=== PATIENT | female | born 1940 | race Caucasian/White ===

== ENCOUNTER → 2017-08-10 | Outpatient (CLI) | payer OTHER ==
[~2017-08-10] MED LIST: ASPIRIN ADULT L81 M1 PO; CELEXA20 MG PO; CENTRUM SILVER1 TA1 PO; COZAAR50 MG PO; FISH OIL 10001000 MG PO; FLAGYL500 MG PO; NORVASC2.5 MG PO; Oscal,Oyster S500 MG PO; SIMVASTATIN5 MG PO; VITAMIN C1 TAB PO
== END | disposition home or self-care (01) ==
LOC: MAMMO 13:40
DX: Z12.31 Encounter for screening mammogram for malignant neoplasm of breast (principal)

== ENCOUNTER → 2017-08-31 | Outpatient (CLI) | payer OTHER | END | disposition home or self-care (01) | LOC: MAMMO 12:57 | DX: N63.10 Unspecified lump in the right breast, unspecified quadrant (principal) ==

== ENCOUNTER 2017-09-19 11:46 | Emergency (ER) | payer MEDICARE, OTHER ==
[~2017-09-19] VITALS: Ht 165.1 cm; Wt 90.7 kg
[2017-09-19 13:45] LABS: BASO % 0.4 % (0.0-1.0); EOS # 0.1 10*3/uL (0.0-0.4); EOS % 1.5 % (1.0-4.0); HEMATOCRIT 38.1 % (37.0-47.0); LYMPH # 1.6 10*3/uL (1.3-4.4); LYMPH % 19.8 % (27.0-41.0); MEAN CELL VOLUME 87.8 fl (81.0-99.0); MEAN CORPUSCULAR HGB 27.6 pg (27.0-31.0); MEAN CORPUSCULAR HGB CONC 31.5 g/dl (33.0-37.0); MEAN PLATELET VOLUME 10.2 fl (9.6-12.3); MONO # 0.7 10*3/uL (0.1-1.0); MONO % 8.6 % (3.0-9.0); NEUT # 5.4 10*3/uL (2.3-7.9); NEUT % 67.5 % (47.0-73.0); PLATELET COUNT AUTOMATED 214 10*3/uL (130-400); RED BLOOD COUNT 4.34 10*6/uL (4.10-5.10); RED CELL DISTRI WIDTH 12.7 % (0-14.5)
[2017-09-19 14:02] LABS: BUN 19 mg/dl (7-24); CHLORIDE 106 mmol/L (98-107); CREATININE 0.77 mg/dL (0.55-1.02); POTASSIUM 3.7 mmol/L (3.5-5.1); SODIUM 143 mmol/L (136-145)
[2017-09-19 14:08] LABS: TROPONIN I < 0.015 ng/ml (<0.045)
[2017-09-19 19:22] VITALS: BP 136/68
== END 2017-09-19 20:39 | disposition short-term general hospital (02) ==
LOC: ED 11:46
PROVIDERS: Emergency Medicine
DX: I63.9 Cerebral infarction, unspecified (principal); R53.1 Weakness; Z90.710 Acquired absence of both cervix and uterus; Z90.49 Acquired absence of other specified parts of digestive tract; Z98.890 Other specified postprocedural states; Z79.899 Other long term (current) drug therapy; Z79.82 Long term (current) use of aspirin; Z88.8 Allergy status to other drugs, medicaments and biological substances

== ENCOUNTER → 2018-07-26 | Outpatient (CLI) | payer OTHER, MEDICARE | END | disposition home or self-care (01) | LOC: MAMMO 07-13 13:30 | DX: N63.11 Unspecified lump in the right breast, upper outer quadrant (principal) ==

== ENCOUNTER 2018-09-23 19:08 | Emergency (ER) | payer MEDICARE, OTHER ==
[~2018-09-23] VITALS: Ht 165.1 cm; Wt 90.7 kg
--- NOTE | ~2018-09-23 | EKG ---
[place], [place] ELECTROCARDIOGRAM REPORT NAME: YARED LEE UNIT #: [id number] ROOM: DOCTOR: EPIPHANY DRAFT REPORT BIRTHDATE: [birth year] [facility] Test Date: 2018-09-23 Test Time: 20:32:31 Pat Name: YARED LEE Department: ER Room: Gender: F Scientific Laboratory Supervisor: EKG.SC : 1940 Requested By: KEANU BANDA PA-C Order Number: [id number] Reading MD: Carol Cline MD Measurements Intervals [place] Rate: 71 P: 47 DC: 113 QRS: 53 QRSD: 88 T: 25 QT: 418 QTc: 455 Interpretive Statements Sinus rhythm Borderline short DC interval Borderline ST depression, inferior leads Electronically Signed On 09-27-2018 15:06:26 PDT by Carol Cline MD CM:EKGRPT:ELECTROCARDIOGRAM REPORT [id number] KEANU BANDA PA-C EPIPHANY DRAFT REPORT KEANU BANDA PA-C
[2018-09-23 19:12] VITALS: BP 144/63
[2018-09-23] MEDS ORDERED: NORCO 5-325 TA1 EACH PO (20:25)
[2018-09-23 20:52] LABS: BASO % 0.3 % (0.0-1.0); EOS # 0.1 10*3/uL (0.0-0.4); EOS % 1.1 % (1.0-4.0); HEMATOCRIT 41.4 % (37.0-47.0); HEMOGLOBIN 12.8 g/dl (12.0-16.0); LYMPH # 1.2 10*3/uL (1.3-4.4); LYMPH % 13.2 % (27.0-41.0); MEAN CELL VOLUME 86.4 fl (81.0-99.0); MEAN CORPUSCULAR HGB 26.7 pg (27.0-31.0); MEAN CORPUSCULAR HGB CONC 30.9 g/dl (33.0-37.0); MEAN PLATELET VOLUME 10.1 fl (9.6-12.3); MONO # 0.8 10*3/uL (0.1-1.0); MONO % 8.9 % (3.0-9.0); NEUT # 7.1 10*3/uL (2.3-7.9); PLATELET COUNT AUTOMATED 273 10*3/uL (130-400); RED BLOOD COUNT 4.79 10*6/uL (4.10-5.10); RED CELL DISTRI WIDTH 13.8 % (0-14.5); WHITE BLOOD COUNT 9.3 10*3/uL (4.8-10.8)
[2018-09-23 21:02] LABS: ACT PARTIAL THROMBO TIME 21.2 SECONDS (20.8-31.5); INTERNATIONAL NORM RATIO 0.9 (2.0-3.5)
[2018-09-23 21:21] LABS: TROPONIN I < 0.015 ng/ml (<0.045)
[2018-09-23 21:24] LABS: BUN 26 mg/dl (7-24)
[2018-09-23 21:25] LABS: CHLORIDE 110 mmol/L (98-107); CREATININE 0.66 mg/dL (0.55-1.02); POTASSIUM 3.7 mmol/L (3.5-5.1); SGOT/AST 10 IU/L (3-35); SGPT/ALT 16 U/L (12-78); SODIUM 143 mmol/L (136-145); TOTAL PROTEIN 6.5 gm/dL (6.4-8.2)
[2018-09-23 21:26] LABS: ALKALINE PHOSPHATASE 81 U/L (45-117)
[2018-09-23 22:17] LABS: BILIRUBIN NEGATIVE (NEGATIVE); BLOOD NEGATIVE (NEGATIVE); CLARITY CLEAR (CLEAR); GLUCOSE NEGATIVE (NEGATIVE); KETONE NEGATIVE (NEGATIVE); LEUKO ESTERASE 1+ (NEGATIVE); NITRITE NEGATIVE (NEGATIVE); PH 5.5 (5.0-9.0); SPECIFIC GRAVITY 1.025 (1.005-1.030)
[2018-09-23 22:18] LABS: COLOR YELLOW (YELLOW)
[2018-09-23 22:25] LABS: BACTERIA 2+; MUCOUS 1+
== END 2018-09-24 01:13 | disposition home or self-care (01) ==
LOC: ED 19:08
PROVIDERS: Physician Assistant
DX: M54.5 Low back pain (principal); R42 Dizziness and giddiness; R55 Syncope and collapse; R53.1 Weakness; M54.2 Cervicalgia; Z79.899 Other long term (current) drug therapy; Z79.82 Long term (current) use of aspirin; Z86.73 Personal history of transient ischemic attack (TIA), and cerebral infarction without residual deficits; W18.30XA Fall on same level, unspecified, initial encounter; Y93.89 Activity, other specified; Y92.89 Other specified places as the place of occurrence of the external cause; Y99.8 Other external cause status

== ENCOUNTER 2019-04-14 13:12 | Inpatient (IN) | payer MEDICARE, OTHER ==
[~2019-04-14] VITALS: Ht 165.1 cm; Wt 84.8 kg
--- NOTE | ~2019-04-14 | EKG ---
[place], [place] ELECTROCARDIOGRAM REPORT NAME: YARED LEE UNIT #: [id number] ROOM: 506 DOCTOR: SAURABH DRAFT REPORT BIRTHDATE: [birth year] [facility] Test Date: 2019-04-14 Test Time: 13:35:07 Pat Name: YARED LEE Department: Room: 506 Gender: F Automotive Hardware Engineer: Viktoria Gomez : 1940 Requested By: STEF HOOKER Order Number: [id number] Reading MD: Kami Hernandez MD Measurements Intervals [place] Rate: 96 P: 71 MN: 112 QRS: 78 QRSD: 84 T: 68 QT: 336 QTc: 425 Interpretive Statements Sinus rhythm Borderline short MN interval Abnormal R-wave progression, early transition Compared to ECG 09/23/2018 20:32:31 ST (T wave) deviation no longer present Electronically Signed On 04-16-2019 13:10:45 PDT by Kami Hernandez MD CM:EKGRPT:ELECTROCARDIOGRAM REPORT [id number] STEF HOBSON DRAFT REPORT STEF HOOKER DO
--- NOTE | ~2019-04-14 | CON ---
[place], [place] REPORT OF CONSULTATION [id number] UNIT #: [id number] ROOM: 506 DOCTOR: HARLAN CHAVEZ MDRAOUL BIRTHDATE: [birth year] DOS: 04/17/2019 PULMONARY CONSULTATION EVALUATION AND MANAGEMENT CONSULTATION REQUESTED BY: Dr. Kingston Lowery. REASON FOR CONSULTATION: For assessment of chronic obstructive pulmonary disease and acute pneumonia. HISTORY OF PRESENT ILLNESS: This is an 78-year-old white female patient who was admitted to the hospital under care of her primary care physician, Dr. Mariana Lowery on 04/14/2019. The patient came into the hospital Emergency Room as she has been reporting having symptoms of increased shortness of breath occurring at home. The patient was also complaining of general weakness and fatigue as well. She has been previously treated for urinary tract infection by the primary care physician with the antibiotics. The patient also reported palpitation as well. She denies any symptoms of wheezing. Denies symptoms of chest pain or any acute hemoptysis. She has been admitted to the hospital for further care for the congestive heart failure and other reasons. The patient stating this morning, she is feeling tired and fatigued. She could not sleep during this hospitalization as she has to be awake multiple times at night, sometime in the daytime as well. "I could not sleep well." The respiratory symptom and acute illness at the time came into the hospital as per patient was improved 100%. REVIEW OF SYSTEMS: CONSTITUTIONAL: Fatigue and tiredness still reported without any symptoms of fever or chills. EYES: Denies any burning, redness, or tenderness. EARS, NOSE, THROAT SYMPTOMS: She denies symptoms of postnasal drainage or epistaxis. The patient was noted with history of chronic hearing loss. The patient using hearing aids for that. CARDIOVASCULAR: Denies angina pain, edema or pain of the lower extremities. GASTROINTESTINAL: Denies dysphagia, nausea, vomiting, diarrhea, abdominal pain, hematemesis, melena, or hematochezia. SKIN: Denies abnormal lesions or rashes. CENTRAL NERVOUS SYSTEM: Denies any dizziness, headache, diplopia or syncopal episodes. Remaining systems were reviewed with the patient, they were noted all negative. PAST MEDICAL HISTORY: The patient was known with; 1. History of essential hypertension. 2. General anxiety disorder. 3. Coronary artery disease. 4. Hypercholesterolemia. 5. General anxiety disorder and depression. SOCIAL HISTORY: Stated by the patient she lives at home by herself. She has 3 children. Denies any history of alcohol use or illicit drug. She was noted tobacco use in the past that was discontinued several years ago, could not give [place], [place] REPORT OF CONSULTATION NAME: YARED LEE UNIT #: [id number] ROOM: 506 DOCTOR: RAOUL THOMAS MD BIRTHDATE: [birth year] me the precise history. FAMILY HISTORY: Noncontributory. HOME MEDICATIONS: Listed as amlodipine, calcium carbonate, citalopram, Plavix, gabapentin, Avapro, multivitamin, Ditropan, simvastatin and trazodone. CURRENT MEDICATIONS: Administered on this hospitalization were noted as Plavix, Solu-Medrol 80 mg b.i.d., DuoNeb q. 4 hours, Lovenox, citalopram, aspirin, trazodone, Rocephin, Zithromax, and some other p.r.n. meds. DRUG ALLERGIES: Noted allergies: 1. SULFA DRUGS. 2. POVIDONE IODINE. PHYSICAL EXAMINATION: GENERAL: This is an 78-year-old female patient currently sitting on side of the bed without any acute distress with mild hearing loss, but able to understand the question and answer them appropriately. Height of 5 feet 5 inches, weight of 187 pounds, BMI 31 recorded on admission by the nursing staff. VITAL SIGNS: For the patient, reviewed, normal temperature since admission, respiratory rate between 18-22, heart rate ranging between 82-94, blood pressure 129/65 at midnight with previous blood pressure 120/73 recorded. Intake 1080 mL and output 700 mL. Pulse oxygen saturation on room air at rest was 94% saturation. HEENT: Examination shows head was atraumatic. Eyes nonicterus. NECK: Supple. CARDIOVASCULAR: S1, S2 audible. LUNGS: Noted without any wheezing or crackles were noted scattered in both lungs bilaterally, greater on the right than the left side. ABDOMEN: Soft, nontender. Bowel sounds present. EXTREMITIES: Does not show any acute edema, clubbing or cyanosis this morning of assessment. CENTRAL NERVOUS SYSTEM: Noted intact. MUSCULOSKELETAL: Noted without any acute deformities. LABORATORY DATA: CMP on 04/14/2019 that was done, BUN 27, creatinine was normal. Remaining electrolytes grossly normal. ProBNP was noted elevated at 1749. CBC that was done on 04/14/2019, WBC count 14.2, hemoglobin 10.1, platelet count was normal. CMP that was done 04/15/2019, normal BUN and creatinine and other electrolytes. BMP that was done yesterday with normal BUN and creatinine. Glucose 153. D-dimer noted elevated 1.92 on 04/15/2019. The patient has a V/Q scan that was completed on 04/16/2019 was noted low probability of pulmonary embolism. The images could not be reviewed. The chest x-ray was done, 1 view on admission on 04/14/2019, again none of the images could be reviewed. Radiology was noted there were no acute abnormalities. The patient has a CT scan of the chest that was completed without contrast on 04/15/2019 reported with finding of trace bilateral pleural fluid. Left lower lobe was described as area of atelectasis, which could be round atelectasis consolidation. Comparison with the previous other CT scan of the chest [place], [place] REPORT OF CONSULTATION NAME: YARED LEE UNIT #: [id number] ROOM: 506 DOCTOR: HARLAN CHAVEZ MD,[facility] BIRTHDATE: [birth year] available to be done. IMPRESSION: 1. The patient who has been currently admitted to the hospital was noted with finding highly suggestive of acute congestive heart failure is the most likely cause of current assessment as well, possibly acute exacerbation of chronic obstructive pulmonary disease. 2. Small pleural fluid related to congestive heart failure would be considered likely. 3. Area of round atelectasis, mass lesion cannot be completely excluded. Symptomatically, the patient has shown significant improvement in the symptoms including respiratory symptoms and debility, stating that she has been considered for [facility] to [facility] for [facility] care. PLAN OF MANAGEMENT: At this time, dose of Solu-Medrol will be decreased to 40 mg daily because of lack of wheezing. Cardiology assessment if not done should be done including consideration for echocardiogram. The abnormality in the right lower lobe at this time significance unclear. Outpatient workup to be done for further followup, if necessary obtain the PET scan to exclude any malignant process. Other therapy, plan of management, additional treatment changes will be made based on progression of the illness. Usual care. Supportive plan of management, other care plan for treatment and therapies. Usual medical care. Thanks for allowing me to participate in the care of this patient. RAOUL CLAROS MD CM:CONSTR:REPORT OF CONSULTATION 1012 04/17/19 1411 interface
--- NOTE | ~2019-04-14 | PR ---
[place], [place] PROGRESS NOTE NAME: YARED LEE UNIT #: [id number] ROOM: 506 DOCTOR: RAOUL THOMAS MD BIRTHDATE: [birth year] DOS: 04/18/2019 SUBJECTIVE: She has been noted comfortable at this time, resting in the bed, reporting reduction in symptoms of shortness of breath, [id number] nonproductive cough stated today. There were no symptoms of chest pain, fever or chills. Denies symptoms of hemoptysis. Denies symptoms of nausea, vomiting, diarrhea or any abdominal pain. OBJECTIVE: GENERAL: The patient was noted she was comfortably resting in the bed this morning of assessment. VITAL SIGNS: Normal temperature, respiratory rate 18, heart rate 78, blood pressure 150/80 recorded at midnight. The pulse oxygen saturation recorded on room air at rest 94% saturation. HEENT: Examination shows head was atraumatic. Eyes nonicterus. NECK: Supple. CARDIOVASCULAR: S1, S2 audible. LUNGS: Noted without any wheezing or crackles at the present time. ABDOMEN: Soft, nontender. Bowel sounds present. EXTREMITIES: No new change. IMPRESSION: 1. Stable respiratory status from the pulmonary standpoint at this time with resolving congestive heart failure. 2. Acute exacerbation of chronic obstructive pulmonary disease. 3. Small pleural fluid. 4. Round atelectasis, mass cannot be excluded as well on the CT scan of the chest in the left lower lobe. PLAN OF MANAGEMENT: No change in pulmonary standpoint. The patient could be discharged to nursing facility. Outpatient assessment to be done for the current nodule/mass lesion with a PET scan to exclude any malignant process. Usual care. [place], [place] PROGRESS NOTE NAME: YARED LEE UNIT #: [id number] ROOM: 506 DOCTOR: RAOUL THOMAS MD BIRTHDATE: [birth year] RAOUL CLAROS MD CM:PNTRANS [id number] RAOUL CHAVEZ MD 04/18/19 1413 interface
[~2019-04-14 13:12] MED LIST changes: +NORCO 5-325 TA1 EACH PO
[2019-04-14 13:16] VITALS: BP 106/51
[2019-04-14 13:55] LABS: HEMATOCRIT 34.2 % (37.0-47.0); HEMOGLOBIN 10.1 g/dl (12.0-16.0); MEAN CELL VOLUME 81.6 fl (81.0-99.0); MEAN CORPUSCULAR HGB 24.1 pg (27.0-31.0); MEAN CORPUSCULAR HGB CONC 29.5 g/dl (33.0-37.0); PLATELET COUNT AUTOMATED 274 10*3/uL (130-400); RED BLOOD COUNT 4.19 10*6/uL (4.10-5.10); RED CELL DISTRI WIDTH 15.5 % (0-14.5); WHITE BLOOD COUNT 14.2 10*3/uL (4.8-10.8)
--- NOTE | 2019-04-14 14:06 | NUR ---
PT POSITIONED FOR COMFORT WITH FAMILY @ BEDSIDE,SAFETY PRECAUTIONS INTACT AND CALL LIGHT WITHIN REACH.
--- NOTE | 2019-04-14 14:08 | NUR ---
PT UNABLE TO HELP COMPLETE A MEDICATION REC AN UNABLE TO FIND HER MEDICATION LIST @ THIS TIME.
[2019-04-14 14:13] LABS: TOTAL CELLS COUNTED 100 #CELLS
[2019-04-14 14:14] LABS: ACT PARTIAL THROMBO TIME 27.6 SECONDS (20.0-32.1); ALBUMIN 2.2 gm/dl (3.1-4.5); ALKALINE PHOSPHATASE 67 U/L (45-117); BUN 27 mg/dl (7-24); CHLORIDE 111 mmol/L (98-107); CREATININE 0.84 mg/dL (0.55-1.02); LIPASE 71 U/L (73-393); SGOT/AST 20 IU/L (3-35); SGPT/ALT 21 U/L (12-78); SODIUM 141 mmol/L (136-145); TOTAL PROTEIN 5.4 gm/dL (6.4-8.2)
[2019-04-14 14:14] LABS: PLATELET SUFFICIENCY NORMAL (NORMAL)
[2019-04-14 14:15] LABS: TROPONIN I < 0.015 ng/ml (<0.045)
[2019-04-14 15:32] LABS: BILIRUBIN NEGATIVE (NEGATIVE); BLOOD NEGATIVE (NEGATIVE); CLARITY SL CLOUDY (CLEAR); COLOR YELLOW (YELLOW); GLUCOSE NEGATIVE (NEGATIVE); KETONE NEGATIVE (NEGATIVE); LEUKO ESTERASE 1+ (NEGATIVE); NITRITE NEGATIVE (NEGATIVE); SPECIFIC GRAVITY 1.015 (1.005-1.030)
[2019-04-14 15:37] LABS: BACTERIA 3+; MUCOUS 3+; WBC 21-30 wbc/hpf (0-5)
[2019-04-14 16:22] VITALS: BP 102/58
[2019-04-14 17:15] VITALS: BP 110/54
--- NOTE | 2019-04-14 17:15 | NUR ---
A 78, admitted to , under the services of KELLEN Iglesias MD with a diagnosis of UTI, DEHYDRATION. Chief complaint is WEAKNESS. Patient arrived via bed from ER. Monitor applied. Initial assessment completed. Vital signs taken and recorded. KELLEN IGLESIAS MD notified of admission to the unit. Orders received. See assessment for past medical history, medications and allergies. Patient and/or family oriented to unit. [facility] visitation policy reviewed. Clothing/patient valuable form completed. CHANG LOPEZ
--- NOTE | 2019-04-14 17:45 | NUR ---
DR. THOMAS NOTIFIED OF COMPLETE MED REC.
[2019-04-14] MEDS ORDERED: NEURONTIN300 MG PO (18:11)
[2019-04-14] MEDS ORDERED: AVAPRO150 M1 PO (18:12)
[2019-04-14] MEDS ORDERED: DITROPAN XL5 MG PO (18:12)
[2019-04-14] MEDS ORDERED: PLAVIX75 M1 PO (18:12)
[2019-04-14] MEDS ORDERED: TRAZODONE50 MG PO (18:13)
[2019-04-14 20:00] VITALS: BP 120/54
[2019-04-15] VITALS: BP 118/53
--- NOTE | 2019-04-15 00:30 | NUR ---
PATIENT RESTING IN BED WITH EYES OPEN. ASSISTED PATIENT TO BEDSIDE COMMODE. PATIENT BECOMES SHORT OF BREATH WITH EXERTION. O2 APPLIED AT 3L N/C. PATIENT STATED SHE USES OXYGEN AT NIGHT TIME. IV FLUIDS INFUSING AT 100CC/HR AT THIS TIME. DENIES COMPLAINTS OF PAIN OR DISCOMFORT AT THIS TIME. WILL CONTINUE TO MONITOR. CALL LIGHT IN REACH.
[2019-04-15 06:21] LABS: BASO % 0.2 % (0.0-1.0); EOS # 0.4 10*3/uL (0.0-0.4); EOS % 5.4 % (1.0-4.0); HEMATOCRIT 30.7 % (37.0-47.0); HEMOGLOBIN 8.9 g/dl (12.0-16.0); LYMPH # 1.1 10*3/uL (1.3-4.4); LYMPH % 13.6 % (27.0-41.0); MEAN CELL VOLUME 81.2 fl (81.0-99.0); MEAN CORPUSCULAR HGB 23.5 pg (27.0-31.0); MEAN PLATELET VOLUME 10.7 fl (9.6-12.3); MONO # 0.5 10*3/uL (0.1-1.0); NEUT # 6.1 10*3/uL (2.3-7.9); NEUT % 74.6 % (47.0-73.0); PLATELET COUNT AUTOMATED 255 10*3/uL (130-400); RED BLOOD COUNT 3.78 10*6/uL (4.10-5.10); RED CELL DISTRI WIDTH 15.3 % (0-14.5); WHITE BLOOD COUNT 8.2 10*3/uL (4.8-10.8)
[2019-04-15 06:27] LABS: ALBUMIN 1.9 gm/dl (3.1-4.5); ALKALINE PHOSPHATASE 57 U/L (45-117); BUN 23 mg/dl (7-24); CHLORIDE 113 mmol/L (98-107); CREATININE 0.68 mg/dL (0.55-1.02); IRON 15 ug/dL (50-170); POTASSIUM 4.1 mmol/L (3.5-5.1); SGOT/AST 10 IU/L (3-35); SGPT/ALT 18 U/L (12-78); SODIUM 143 mmol/L (136-145); TOTAL IRON BINDING CAPACITY 216 ug/dl (250-450); TOTAL PROTEIN 4.8 gm/dL (6.4-8.2)
--- NOTE | 2019-04-15 07:35 | NUR ---
24 HOUR CHART CHECK COMPLETED
[2019-04-15 07:50] LABS: FERRITIN 34.1 ng/mL (10.0-291.0); VITAMIN D, 25-HYDROXY 33.9 ng/mL (30-100)
--- NOTE | 2019-04-15 08:15 | NUR ---
PATIENT ASSESSMENT COMPLETED AT THIS TIME WITHOUT INCIDENT. DENIES ANY PAIN, CHEST PAIN OR SHORTNESS OF BREATH AT THIS TIME. MEDICATIONS GIVEN WITHOUT INCIDENT. PATIENT EATING BREAKFAST AT THIS TIME. CALL LIGHT WITHIN REACH, WILL CONTINUE TO MONITOR.
--- NOTE | 2019-04-15 09:20 | NUR ---
PATIENT IN SHOWER AT THIS TIME ACCOMPANIED BY PATIENT ATTENDANT. ROLL WINDER AWARE THAT PATIENT WILL BE OFF OF THE MONITOR FOR THIS PERIOD.
--- NOTE | 2019-04-15 09:40 | NUR ---
PATIENT RETURNED FROM SHOWER AT THIS TIME AND PLACED BACK ON FILM READER.
--- NOTE | 2019-04-15 11:30 | NUR ---
PHYSICAL THERAPY PT EVAL COMPLETED ON 04/15/19 ; FULL EVAL TO FOLLOW. RECOMMEND PT WHILE HERE TO ADDRESS DECREASED STRENGTH AND FUNCTIONAL MOBILITY. PT EVAL IS MODERATE COMPLEXITY: [id number]. D/C RECOMMENDATIONS AT THIS TIME ARE FOR SHORT TERM SNF STAY TO ADDRESS DECREASED FUNCTIONAL STATUS AND DUE TO HER LIVING ALONE. THANK YOU FOR REFERRAL ANDIE MANCINI PT
[2019-04-15 12:00] VITALS: BP 140/70
--- NOTE | 2019-04-15 15:29 | NUR ---
SPOKE WITH DR. LARA REFERENCE TO PATIENT ALLERGY TO IODINE HE ORDERED A CTA WITH CONTRAST. ORDERS RECEIVED TO CHANGE TO CTA WITHOUT CONTRAST. AND ORDERED A D-DIMER BE ADDED TO HER BLOOD WORK AND TO CALL HIM WITH THE RESULTS.
[2019-04-15 16:00] VITALS: BP 129/58
--- NOTE | 2019-04-15 17:35 | NUR ---
SPOKE WITH DR. LARA TO RELAY RESULTS OF ORDERED BLOOD WORK. ORDERS RECEIVED.
[2019-04-15 20:00] VITALS: BP 128/83
[2019-04-16] VITALS: BP 136/68
--- NOTE | 2019-04-16 01:00 | NUR ---
WENT INTO ROOM AND PT STATES "MY IV CAME OUT." IV WAS OUT AND LAYING ON THE BED. NEW IV 22G IN LAC.
[2019-04-16 06:25] LABS: BASO % 0.2 % (0.0-1.0); EOS % 0.2 % (1.0-4.0); HEMATOCRIT 32.5 % (37.0-47.0); HEMOGLOBIN 9.4 g/dl (12.0-16.0); LYMPH # 0.4 10*3/uL (1.3-4.4); LYMPH % 7.9 % (27.0-41.0); MEAN CELL VOLUME 81.9 fl (81.0-99.0); MEAN CORPUSCULAR HGB 23.7 pg (27.0-31.0); MEAN CORPUSCULAR HGB CONC 28.9 g/dl (33.0-37.0); MEAN PLATELET VOLUME 10.1 fl (9.6-12.3); MONO # 0.1 10*3/uL (0.1-1.0); MONO % 1.2 % (3.0-9.0); NEUT # 4.5 10*3/uL (2.3-7.9); NEUT % 89.7 % (47.0-73.0); PLATELET COUNT AUTOMATED 263 10*3/uL (130-400); RED BLOOD COUNT 3.97 10*6/uL (4.10-5.10); RED CELL DISTRI WIDTH 15.3 % (0-14.5); WHITE BLOOD COUNT 5.1 10*3/uL (4.8-10.8)
[2019-04-16 06:28] LABS: BUN 21 mg/dl (7-24); CHLORIDE 115 mmol/L (98-107); CREATININE 0.65 mg/dL (0.55-1.02); POTASSIUM 4.6 mmol/L (3.5-5.1); SODIUM 146 mmol/L (136-145)
--- NOTE | 2019-04-16 07:58 | NUR ---
SENT TO RADIOLOGY
[2019-04-16 08:00] VITALS: BP 132/63
--- NOTE | 2019-04-16 09:00 | NUR ---
PHYSICAL THERAPY Patient seen this am 1:1 for therapy visit and was sitting up EOB upon therapist arrival. Patient identified by name / and was very pleasant this morning, reporting no c/o's pain, however just some generalized, global weakness. Patient transfers sit to stand MIN A and ambulates with use of narrow based quad cane, CGA, demonstrating a little increased gait velocity and unsteady gait pattern. Patient needed v/c to slow tyrell to improve quad cane safety, 50'x 2, while maintaining SpO2 / HR WFL's throughout entire therapy session. Patient returned to EOB sit with mild fatigue and remained with call light, tray table, and telephone. Will continue per POC as tolerated, total treatment time 16 minutes. Laz Sierra, MANAGER SOUND
--- NOTE | 2019-04-16 09:30 | NUR ---
PULSE OX 95% ON ROOM AIR AT REST. AMBULATED PATIENT APPROX 60 FT, PULSE OX 89%-91% ON ROOM AIR WHILE AMBULATING, HR >124. POST AMBULATION PULSE OX 93% ON ROOM AIR AT REST, HR DECREASED TO 106.
--- NOTE | 2019-04-16 09:35 | NUR ---
YARED LEE [id number] Please refer to the physician's history and physical for past medical history, comorbid conditions, and allergies. Diagnosis: GENERAL WEAKNESS UTI SEPSIS DEHDRATION Jose Ramon Score: 18,AT RISK WOUND DESCRIPTIONS: Wound Number: 1 Location of the wound: right great toe Thickness: Partial Size: 1.0cm x 1.2cm x 0.1cm Tunneling: none Undermining: none Sinus Tract: none Presence of Exudate: Serosangueious Amount: Light Color: Red Odor: None Periwound Skin Appearance: Normal Wound edges: approximated Pain (associated with wound): none at time of assessment How does patient state this happened? pt stated this has been going on for about 6 months with her toenail coming off. pt stated she will continue to care for this area when she returns home. Surface the patient is resting on: Isoflex SKIN PREVENTION RECOMMENDATION: 1. Pressure redistribution support surface as appropriate 2. Elevate heels 3. Remove boots/TEDS every shift and reapply 4. Head of bed 30 degrees as tolerated 5. Assess nutrition and hydration 6. Manage moisture 7. Avoid the use of containment devices while in bed 8. Use absorptive products on surfaces limit layers of linens on bed 9. Turn and reposition every 1-2 hours in bed and every 1 hour in chair as tolerated 10. Weight shifts every 15 minutes while up in chair 11. Offloading with pillows or device to keep heels elevated off bed 12. Monitor skin at least every shift 13. Inspect under medical devices twice a day WOUND TREATMENT RECOMMENDATIONS: d/c skin tear guidelines to right great toe Cleanse right great toe with nss and apply bactroban bid and cover with bandaid.
--- NOTE | 2019-04-16 09:50 | NUR ---
PT SITTING AT SIDE OF BED EATING BREAKFAST
--- NOTE | 2019-04-16 10:30 | NUR ---
Reclamation Furnace Operator in to talk to patient. Patient states lives at home alone with her son and [id number]-[id number] following in on her. There are 4-5 steps in the home. Physician: Dr. Robertson Pharmacy: [facility] health services: has had in the past but not currently Patient's level of ADLs: MINIMAL ASSIST Patient has working utilities: yes DME: cane, walker, O2 @ 3L nc prn, c-pap with O2, nebulizer, [employer], O2 supplier [facility] Follow-up physician's appointment after d/c: she prefers to make her own follow up appt after discharge Does patient want to access PORTAL?: no Discharge plan discussed with patient. She lives at home alone with her son and pelrplme-mj-reu calling to check in on her. She is independent in her ADLs and ambulates with either a cane or a walker. Discussed short term SNF and she is agreeable. When provided with a list of facilities she chose [facility]. bee worker following. Her family will provide transportation on discharge. ARNOLDO LACKEY
--- NOTE | 2019-04-16 11:28 | NUR ---
Dr. Sharp notified of wound care recommendations.
[2019-04-16 12:00] VITALS: BP 123/47
--- NOTE | 2019-04-16 13:02 | NUR ---
GROUNDS FOREMAN completed HENs. -ARYAN Pal
--- NOTE | 2019-04-16 15:25 | NUR ---
ECHO AT BEDSIDE
--- NOTE | 2019-04-16 15:38 | NUR ---
DR. CLAROS AWARE OF NEW CONSULT
[2019-04-16 16:00] VITALS: BP 142/76
[2019-04-16 20:00] VITALS: BP 128/73
[2019-04-17] VITALS: BP 129/65
--- NOTE | 2019-04-17 00:10 | NUR ---
PATIENT RESTING IN A POSITION OF COMFORT IN BED AT THIS TIME ON BIPAP. RESPIRATIONS EASY AND NONLABORED AT THIS TIME. CALL LIGHT WITHIN REACH, WILL CONTINUE TO MONITOR
[2019-04-17 06:37] LABS: BASO % 0.2 % (0.0-1.0); HEMATOCRIT 30.5 % (37.0-47.0); HEMOGLOBIN 8.6 g/dl (12.0-16.0); LYMPH # 0.8 10*3/uL (1.3-4.4); LYMPH % 7.1 % (27.0-41.0); MEAN CELL VOLUME 83.1 fl (81.0-99.0); MEAN CORPUSCULAR HGB 23.4 pg (27.0-31.0); MEAN CORPUSCULAR HGB CONC 28.2 g/dl (33.0-37.0); MEAN PLATELET VOLUME 10.6 fl (9.6-12.3); MONO # 0.6 10*3/uL (0.1-1.0); MONO % 4.9 % (3.0-9.0); NEUT # 9.9 10*3/uL (2.3-7.9); NEUT % 86.3 % (47.0-73.0); PLATELET COUNT AUTOMATED 296 10*3/uL (130-400); RED BLOOD COUNT 3.67 10*6/uL (4.10-5.10); RED CELL DISTRI WIDTH 15.5 % (0-14.5); WHITE BLOOD COUNT 11.5 10*3/uL (4.8-10.8)
[2019-04-17 07:05] LABS: BUN 28 mg/dl (7-24); CHLORIDE 116 mmol/L (98-107); CREATININE 0.88 mg/dL (0.55-1.02); POTASSIUM 4.6 mmol/L (3.5-5.1); SODIUM 146 mmol/L (136-145)
[2019-04-17 08:00] VITALS: BP 120/48
--- NOTE | 2019-04-17 10:09 | NUR ---
PHYSICAL THERAPY Patient was resting comfortably in bed when approached for thearapy this morning and reports feeling a bit sluggish / generalized weakness. Patient requested to be seen this pm for treatment if possible so she could stay in bed and rest. Will continue this pm as tolerated per POC. Laz Sierra, ACADEMIC GUIDANCE SPECIALIST
--- NOTE | 2019-04-17 10:30 | NUR ---
Primary Care Nurse in to see patient. No new needs or request at this time. When medically stable and accepted she will be discharged to [facility]. Per multidisciplinary discharge planning meeting Dr. Curtis was consulted for worsening LLL pneumonia.
[2019-04-17 12:00] VITALS: BP 134/71
--- NOTE | 2019-04-17 12:45 | NUR ---
PHYSICAL THERAPY Patient seen this pm 1;1 for therapy visit and was supine in bed upon therapist arrival. Patient identified by name / and reports no c/o's pain, however stated a little low back stiffness at times during transfers. Patient completed supine to sit EOB with CGA, followed by donning her socks / shoes from seated position. Patient became a little SOB from bending forward and needed a brief rest break to catch her breath before transfering sit to stand CGA. Patient ambulates with use of narrow based quad cane, CGA, 50'x 2, demonstrating slow tyrell and decreased stride. Patient experienced several mild bouts of SOB, requiring brief standing rest break and v/c for purse lip breathing technque. Patient SpO2 drop to 90%, HR 124 bpm and returned to near baseline SpO2 95% on RA, HR 95 bpm. Patient returned to EOB sit and remained with call light, tray table and telephone. Will continue per POC as tolerated to improve safe functional transfers / mobilty to decrease risk of falls. Total treatment time 16 minutes. Laz Sierra, STARTER MECHANIC
--- NOTE | 2019-04-17 13:53 | NUR ---
EMS MANAGER faxed updates to [facility]. -ARYAN Pal
[2019-04-17 16:00] VITALS: BP 138/70
--- NOTE | 2019-04-17 19:44 | NUR ---
24 HR chart check completed.
[2019-04-17 20:00] VITALS: BP 138/59
--- NOTE | 2019-04-17 23:55 | NUR ---
NO C/O OR S/S OF DISTRESS NOTED AT THIS TIME. BED IS LOW, LOCKED, AND CALL LIGHT IS WITHIN REACH. WILL CONTINUE TO MONITOR, SEE SHIFT ASSESSMENT. Neurological: awake,alert,oriented x3 Respiratory: NONLABORED, BIPAP 12/7 40% Breath sounds: CLEAR/DIMINISHED T/O Cough: NONE NOTED Cardiovascular: HRR, DENIES CP/PRESSURE, NO EDEMA, PPP Gastrointestinal: NORMOACTIVE X4 QUADS, DENIES N/V/D/C, SOFT, NONTENDER, NONDISTENDED, OBESE Genito/Urinary: DENIES DYSURIA Musculoskeketal: AMBULATORY W/ CANE WOUND RT. GREAT TOE CLARA MACIAS
[2019-04-18] VITALS: BP 150/80
[2019-04-18 06:21] LABS: HEMATOCRIT 31.3 % (37.0-47.0); HEMOGLOBIN 9.1 g/dl (12.0-16.0); MEAN CELL VOLUME 82.6 fl (81.0-99.0); MEAN CORPUSCULAR HGB CONC 29.1 g/dl (33.0-37.0); MEAN PLATELET VOLUME 10.1 fl (9.6-12.3); NUCLEATED RED BLOOD CELL 0.1 % (0.0-0.0); PLATELET COUNT AUTOMATED 330 10*3/uL (130-400); RED BLOOD COUNT 3.79 10*6/uL (4.10-5.10); RED CELL DISTRI WIDTH 15.7 % (0-14.5); WHITE BLOOD COUNT 14.2 10*3/uL (4.8-10.8)
[2019-04-18 06:32] LABS: BUN 28 mg/dl (7-24); CHLORIDE 114 mmol/L (98-107); CREATININE 0.85 mg/dL (0.55-1.02); POTASSIUM 4.3 mmol/L (3.5-5.1); SODIUM 146 mmol/L (136-145)
[2019-04-18 07:23] LABS: OVALOCYTES MODERATE; PLATELET SUFFICIENCY NORMAL (NORMAL); TOTAL CELLS COUNTED 100 #CELLS
[2019-04-18 08:00] VITALS: BP 158/64
--- NOTE | 2019-04-18 08:09 | NUR ---
Patient has been accepted at [facility] and can go when medically stable. -ARYAN Pal
--- NOTE | 2019-04-18 08:21 | NUR ---
PT DID NOT TAKE AEROSOL TX. SHE STATED THAT THE MEDICINE WAS MAKING HER VERY SHAKY ALL OVER. RN NOTIFIED
--- NOTE | 2019-04-18 10:40 | NUR ---
PHYSICAL THERAPY Patient was sitting up on EOB eating a late breakfast and requested to be seen this pm for therapy visit. Will check back later and continue per POC as able. Laz Sierra, ASP DEVELOPER
[2019-04-18] MEDS ORDERED: DOXYCYCLINE100 MG PO (11:59)
[2019-04-18] MEDS ORDERED: PREDNISONE10 MG PO (11:59)
[2019-04-18 12:00] VITALS: BP 114/49
--- NOTE | 2019-04-18 13:15 | NUR ---
DISCHARGE PHOTO TAKEN OF RIGHT GREAT TOE UPON DISCHARGE PER POLICY.
--- NOTE | 2019-04-18 13:31 | NUR ---
ARYAN was notified of the patient being discharge. STOCK CHECKERER spoke with ETHAN Still and explained patient could be transported via [facility] at 1:30pm today. ARYAN already spoke with patients daughter in law Apolonia who works at [facility]. STOCK CHECKERER reached out to the patients son and explained patient is to be transported at 1:30 today and he was agreeable. ARYAN faxed discharge orders to [facility]. -ARYAN Pal
--- NOTE | 2019-04-18 13:47 | NUR ---
CALLED [facility] AND GAVE NURSE TO NURSE REPORT.
--- NOTE | 2019-04-18 14:00 | NUR ---
Discharge instructions reviewed with patient/family. Patient receptive and verbalizes understanding. Follow-up care arranged. Written instructions given to patient/family. IV taken out and heart monitor accounted for. IRAM CHAVEZ
--- NOTE | 2019-04-19 07:56 | NUR ---
PHYSICAL THERAPY CO-SIGN I approve of the Physical Therapy notes written above. Kristie Elaine, PT, DPT
== END 2019-04-18 14:10 | disposition other institution (70) | DRG 871 ==
LOC: ED 13:12 → 5E 16:24 → EDHOLD 16:24 → 5E 17:02
PROVIDERS: Emergency Medicine; Internal Medicine Nephrology; Student in an Organized Health Care Education/Training Program; ADMIT Internal Medicine
PROC: 5A09357 Assistance with Respiratory Ventilation, Less than 24 Consecutive Hours, Continuous Positive Airway Pressure (ICD-10-PCS; principal; 2019-04-16)
DX: A41.9 Sepsis, unspecified organism (principal); J18.1 Lobar pneumonia, unspecified organism; E43 Unspecified severe protein-calorie malnutrition; N39.0 Urinary tract infection, site not specified; J44.1 Chronic obstructive pulmonary disease with (acute) exacerbation; J44.0 Chronic obstructive pulmonary disease with (acute) lower respiratory infection; R65.20 Severe sepsis without septic shock; I11.0 Hypertensive heart disease with heart failure; I50.9 Heart failure, unspecified; R53.1 Weakness; E83.51 Hypocalcemia; G89.29 Other chronic pain; G47.33 Obstructive sleep apnea (adult) (pediatric); F41.1 Generalized anxiety disorder; E78.00 Pure hypercholesterolemia, unspecified; F32.9 Major depressive disorder, single episode, unspecified; M54.9 Dorsalgia, unspecified; D64.9 Anemia, unspecified; E86.0 Dehydration; Z86.73 Personal history of transient ischemic attack (TIA), and cerebral infarction without residual deficits; Z88.2 Allergy status to sulfonamides; Z91.041 Radiographic dye allergy status; Z79.899 Other long term (current) drug therapy; Z79.02 Long term (current) use of antithrombotics/antiplatelets; Z87.891 Personal history of nicotine dependence

== ENCOUNTER 2019-09-21 16:12 | Inpatient (IN) | payer MEDICARE, OTHER ==
[~2019-09-21] VITALS: Ht 165 cm; Wt 87.6 kg
[2019-09-21] VITALS (9 sets, daily range): BP systolic 112–156; BP diastolic 46–89
[~2019-09-21 16:12] MED LIST changes: +AVAPRO150 M1 PO; +DITROPAN XL5 MG PO; +DOXYCYCLINE100 MG PO; +NEURONTIN300 MG PO; +PLAVIX75 M1 PO; +PREDNISONE10 MG PO; +TRAZODONE50 MG PO
[2019-09-21 16:51] LABS: BASO % 0.2 % (0.0-1.0); HEMATOCRIT 39.6 % (37.0-47.0); LYMPH # 0.9 10*3/uL (1.3-4.4); LYMPH % 5.6 % (27.0-41.0); MEAN CELL VOLUME 74.6 fl (81.0-99.0); MEAN CORPUSCULAR HGB 19.6 pg (27.0-31.0); MEAN CORPUSCULAR HGB CONC 26.3 g/dl (33.0-37.0); MEAN PLATELET VOLUME 10.2 fl (9.6-12.3); NEUT # 14.6 10*3/uL (2.3-7.9); NEUT % 87.4 % (47.0-73.0); NUCLEATED RED BLOOD CELL 0.2 % (0.0-0.0); PLATELET COUNT AUTOMATED 450 10*3/uL (130-400); RED BLOOD COUNT 5.31 10*6/uL (4.10-5.10); RED CELL DISTRI WIDTH 17.6 % (0-14.5); WHITE BLOOD COUNT 16.7 10*3/uL (4.8-10.8)
[2019-09-21 17:02] LABS: ACT PARTIAL THROMBO TIME 22.5 SECONDS (20.0-32.1); INTERNATIONAL NORM RATIO 1.1 (2.0-3.5)
[2019-09-21 17:08] LABS: ALBUMIN 2.7 gm/dl (3.1-4.5); ALKALINE PHOSPHATASE 75 U/L (45-117); BUN 39 mg/dl (7-24); CHLORIDE 111 mmol/L (98-107); CREATININE 0.74 mg/dL (0.55-1.02); POTASSIUM 4.7 mmol/L (3.5-5.1); SGOT/AST 14 IU/L (3-35); SGPT/ALT 20 U/L (12-78); SODIUM 145 mmol/L (136-145); TOTAL PROTEIN 6.2 gm/dL (6.4-8.2)
[2019-09-21 17:11] LABS: TROPONIN I 0.167 ng/ml (<0.045)
[2019-09-22 06:12] LABS: BASO % 0.2 % (0.0-1.0); EOS % 0.2 % (1.0-4.0); HEMATOCRIT 42.3 % (37.0-47.0); LYMPH % 5.8 % (27.0-41.0); MEAN CELL VOLUME 76.5 fl (81.0-99.0); MEAN CORPUSCULAR HGB 19.2 pg (27.0-31.0); MEAN CORPUSCULAR HGB CONC 25.1 g/dl (33.0-37.0); MEAN PLATELET VOLUME 10.8 fl (9.6-12.3); MONO # 1.3 10*3/uL (0.1-1.0); MONO % 7.6 % (3.0-9.0); NEUT # 14.8 10*3/uL (2.3-7.9); NEUT % 84.9 % (47.0-73.0); NUCLEATED RED BLOOD CELL 0.1 10*3/uL (0.0-0.0); NUCLEATED RED BLOOD CELL 0.3 % (0.0-0.0); PLATELET COUNT AUTOMATED 466 10*3/uL (130-400); RED BLOOD COUNT 5.53 10*6/uL (4.10-5.10); RED CELL DISTRI WIDTH 17.9 % (0-14.5); WHITE BLOOD COUNT 17.4 10*3/uL (4.8-10.8)
[2019-09-22 06:37] LABS: ALBUMIN 2.8 gm/dl (3.1-4.5); BUN 39 mg/dl (7-24); CHLORIDE 111 mmol/L (98-107); CREATININE 0.74 mg/dL (0.55-1.02); POTASSIUM 4.5 mmol/L (3.5-5.1); SGPT/ALT 21 U/L (12-78); SODIUM 147 mmol/L (136-145); TOTAL PROTEIN 6.3 gm/dL (6.4-8.2)
[2019-09-22 06:38] LABS: ALKALINE PHOSPHATASE 82 U/L (45-117); SGOT/AST 14 IU/L (3-35)
[2019-09-22 06:39] LABS: ACT PARTIAL THROMBO TIME 21.2 SECONDS (20.0-32.1)
[2019-09-22 08:00] VITALS: BP 130/67
[2019-09-22 12:00] VITALS: BP 126/88
[2019-09-22 16:00] VITALS: BP 147/82
[2019-09-22 19:54] LABS: ABG BASE EXCESS 4.6 mmol/L (-2.0-2.0); ARTERIAL BLOOD GAS PH 7.375 (7.35-7.45)
[2019-09-22 20:00] VITALS: BP 116/58
[2019-09-23 05:56] LABS: ALBUMIN 2.9 gm/dl (3.1-4.5); ALKALINE PHOSPHATASE 85 U/L (45-117); BUN 34 mg/dl (7-24); CHLORIDE 110 mmol/L (98-107); CREATININE 0.77 mg/dL (0.55-1.02); POTASSIUM 4.6 mmol/L (3.5-5.1); SGOT/AST 16 IU/L (3-35); SGPT/ALT 22 U/L (12-78); SODIUM 147 mmol/L (136-145); TOTAL PROTEIN 6.4 gm/dL (6.4-8.2)
[2019-09-23 06:13] LABS: HEMATOCRIT 43.6 % (37.0-47.0); MEAN CORPUSCULAR HGB 19.6 pg (27.0-31.0); MEAN CORPUSCULAR HGB CONC 25.5 g/dl (33.0-37.0); MEAN PLATELET VOLUME 10.5 fl (9.6-12.3); NUCLEATED RED BLOOD CELL 0.2 % (0.0-0.0); PLATELET COUNT AUTOMATED 469 10*3/uL (130-400); RED BLOOD COUNT 5.66 10*6/uL (4.10-5.10); RED CELL DISTRI WIDTH 17.7 % (0-14.5); WHITE BLOOD COUNT 19.5 10*3/uL (4.8-10.8)
[2019-09-23 07:12] LABS: MICROCYTOSIS MODERATE; OVALOCYTES FEW; TARGET CELLS FEW; TOTAL CELLS COUNTED 100 #CELLS
[2019-09-23 07:13] LABS: PLATELET SUFFICIENCY HIGH (NORMAL); POLYCHROMASIA SLIGHT
[2019-09-23 08:00] VITALS: BP 144/92
[2019-09-23 12:00] VITALS: BP 109/50
[2019-09-23 16:00] VITALS: BP 117/59
[2019-09-23 20:00] VITALS: BP 124/62
[2019-09-24] VITALS (7 sets, daily range): BP systolic 96–106; BP diastolic 44–65
[2019-09-24 05:04] LABS: BUN 36 mg/dl (7-24); CHLORIDE 105 mmol/L (98-107); CREATININE 0.87 mg/dL (0.55-1.02); POTASSIUM 3.7 mmol/L (3.5-5.1); SODIUM 146 mmol/L (136-145)
[2019-09-24 06:09] LABS: BASO % 0.1 % (0.0-1.0); EOS # 0.1 10*3/uL (0.0-0.4); EOS % 0.3 % (1.0-4.0); HEMATOCRIT 38.9 % (37.0-47.0); LYMPH % 4.9 % (27.0-41.0); MEAN CELL VOLUME 74.7 fl (81.0-99.0); MEAN CORPUSCULAR HGB 19.2 pg (27.0-31.0); MEAN CORPUSCULAR HGB CONC 25.7 g/dl (33.0-37.0); MEAN PLATELET VOLUME 10.5 fl (9.6-12.3); MONO # 1.4 10*3/uL (0.1-1.0); MONO % 7.2 % (3.0-9.0); NEUT # 16.9 10*3/uL (2.3-7.9); NEUT % 87.1 % (47.0-73.0); PLATELET COUNT AUTOMATED 399 10*3/uL (130-400); RED BLOOD COUNT 5.21 10*6/uL (4.10-5.10); RED CELL DISTRI WIDTH 17.4 % (0-14.5); WHITE BLOOD COUNT 19.4 10*3/uL (4.8-10.8)
[2019-09-24 10:59] LABS: ABG BASE EXCESS 10.2 mmol/L (-2.0-2.0); ARTERIAL BLOOD GAS PH 7.369 (7.35-7.45)
[2019-09-24 17:34] LABS: ABG BASE EXCESS 13.4 mmol/L (-2.0-2.0); ARTERIAL BLOOD GAS PH 7.443 (7.35-7.45)
[2019-09-25] VITALS (64 sets, daily range): BP systolic 88–194; BP diastolic 42–61
[2019-09-25 00:36] LABS: ABG BASE EXCESS 13.1 mmol/L (-2.0-2.0); ARTERIAL BLOOD GAS PH 7.578 (7.35-7.45)
[2019-09-25 03:12] LABS: HEMATOCRIT 39.5 % (37.0-47.0); MEAN CELL VOLUME 73.7 fl (81.0-99.0); MEAN CORPUSCULAR HGB 19.2 pg (27.0-31.0); MEAN CORPUSCULAR HGB CONC 26.1 g/dl (33.0-37.0); MEAN PLATELET VOLUME 10.5 fl (9.6-12.3); NUCLEATED RED BLOOD CELL 0.1 10*3/uL (0.0-0.0); NUCLEATED RED BLOOD CELL 0.3 % (0.0-0.0); PLATELET COUNT AUTOMATED 463 10*3/uL (130-400); RED BLOOD COUNT 5.36 10*6/uL (4.10-5.10); RED CELL DISTRI WIDTH 17.2 % (0-14.5); WHITE BLOOD COUNT 21.2 10*3/uL (4.8-10.8)
[2019-09-25 03:26] LABS: ALBUMIN 2.3 gm/dl (3.1-4.5); ALKALINE PHOSPHATASE 75 U/L (45-117); BUN 36 mg/dl (7-24); CHLORIDE 99 mmol/L (98-107); CREATININE 1.01 mg/dL (0.55-1.02); POTASSIUM 2.9 mmol/L (3.5-5.1); SGOT/AST 18 IU/L (3-35); SGPT/ALT 15 U/L (12-78); SODIUM 143 mmol/L (136-145); TOTAL PROTEIN 5.5 gm/dL (6.4-8.2)
[2019-09-25 03:30] LABS: PLATELET SUFFICIENCY HIGH (NORMAL); TOTAL CELLS COUNTED 100 #CELLS
[2019-09-25 03:31] LABS: STOMATOCYTE FEW
[2019-09-25 03:33] LABS: OVALOCYTES MODERATE
[2019-09-25 03:34] LABS: MICROCYTOSIS SLIGHT
[2019-09-25 07:38] LABS: ABG BASE EXCESS 10.7 mmol/L (-2.0-2.0); ARTERIAL BLOOD GAS PH 7.452 (7.35-7.45)
[2019-09-25 15:54] LABS: CREATININE 1.31 mg/dL (0.55-1.02); POTASSIUM 3.7 mmol/L (3.5-5.1)
[2019-09-26] VITALS (91 sets, daily range): BP systolic 96–147; BP diastolic 44–72
[2019-09-26 03:58] LABS: HEMATOCRIT 37.9 % (37.0-47.0); MEAN CELL VOLUME 72.1 fl (81.0-99.0); MEAN CORPUSCULAR HGB 19.8 pg (27.0-31.0); MEAN CORPUSCULAR HGB CONC 27.4 g/dl (33.0-37.0); MEAN PLATELET VOLUME 10.6 fl (9.6-12.3); NUCLEATED RED BLOOD CELL 0.1 % (0.0-0.0); PLATELET COUNT AUTOMATED 361 10*3/uL (130-400); RED BLOOD COUNT 5.26 10*6/uL (4.10-5.10); RED CELL DISTRI WIDTH 18.1 % (0-14.5); WHITE BLOOD COUNT 25.3 10*3/uL (4.8-10.8)
[2019-09-26 04:12] LABS: ALBUMIN 2.1 gm/dl (3.1-4.5); CREATININE 1.57 mg/dL (0.55-1.02); POTASSIUM 3.8 mmol/L (3.5-5.1); TOTAL PROTEIN 5.5 gm/dL (6.4-8.2)
[2019-09-26 04:22] LABS: BASOPHILS 1 % (0-1); BURR CELLS FEW; OVALOCYTES FEW; PLATELET SUFFICIENCY NORMAL (NORMAL); TOTAL CELLS COUNTED 100 #CELLS
[2019-09-26 05:59] LABS: ABG BASE EXCESS 4.4 mmol/L (-2.0-2.0); ARTERIAL BLOOD GAS PH 7.384 (7.35-7.45)
[2019-09-26 17:09] LABS: ABG BASE EXCESS 5.3 mmol/L (-2.0-2.0); ARTERIAL BLOOD GAS PH 7.363 (7.35-7.45)
[2019-09-27] VITALS (96 sets, daily range): BP systolic 90–136; BP diastolic 40–79
[2019-09-27 05:31] LABS: ABG BASE EXCESS 3.4 mmol/L (-2.0-2.0); ARTERIAL BLOOD GAS PH 7.324 (7.35-7.45)
[2019-09-27 05:48] LABS: CREATININE 1.25 mg/dL (0.55-1.02); POTASSIUM 4.3 mmol/L (3.5-5.1)
[2019-09-27 06:31] LABS: HEMATOCRIT 35.1 % (37.0-47.0); MEAN CELL VOLUME 71.8 fl (81.0-99.0); MEAN CORPUSCULAR HGB 19.4 pg (27.0-31.0); MEAN CORPUSCULAR HGB CONC 27.1 g/dl (33.0-37.0); MEAN PLATELET VOLUME 10.8 fl (9.6-12.3); PLATELET COUNT AUTOMATED 302 10*3/uL (130-400); RED BLOOD COUNT 4.89 10*6/uL (4.10-5.10); RED CELL DISTRI WIDTH 17.9 % (0-14.5); WHITE BLOOD COUNT 25.6 10*3/uL (4.8-10.8)
[2019-09-27 07:10] LABS: MICROCYTOSIS SLIGHT; TOTAL CELLS COUNTED 100 #CELLS
[2019-09-27 07:11] LABS: BURR CELLS FEW; PLATELET SUFFICIENCY NORMAL (NORMAL)
[2019-09-27 12:26] LABS: ABG BASE EXCESS 3.3 mmol/L (-2.0-2.0); ARTERIAL BLOOD GAS PH 7.356 (7.35-7.45)
[2019-09-27 16:25] LABS: ABG BASE EXCESS 2.9 mmol/L (-2.0-2.0); ARTERIAL BLOOD GAS PH 7.385 (7.35-7.45)
[2019-09-28] VITALS (94 sets, daily range): BP systolic 103–135; BP diastolic 39–425
[2019-09-28 05:55] LABS: CHLORIDE 102 mmol/L (98-107); POTASSIUM 4.1 mmol/L (3.5-5.1); SODIUM 137 mmol/L (136-145)
[2019-09-28 05:58] LABS: BUN 34 mg/dl (7-24)
[2019-09-28 06:11] LABS: HEMATOCRIT 31.9 % (37.0-47.0); MEAN CELL VOLUME 71.5 fl (81.0-99.0); MEAN CORPUSCULAR HGB 19.5 pg (27.0-31.0); MEAN CORPUSCULAR HGB CONC 27.3 g/dl (33.0-37.0); MEAN PLATELET VOLUME 10.5 fl (9.6-12.3); PLATELET COUNT AUTOMATED 239 10*3/uL (130-400); RED BLOOD COUNT 4.46 10*6/uL (4.10-5.10); RED CELL DISTRI WIDTH 18.1 % (0-14.5); WHITE BLOOD COUNT 23.7 10*3/uL (4.8-10.8)
[2019-09-28 06:13] LABS: ABG BASE EXCESS 4.2 mmol/L (-2.0-2.0); ARTERIAL BLOOD GAS PH 7.402 (7.35-7.45)
[2019-09-28 07:19] LABS: TOTAL CELLS COUNTED 100 #CELLS
[2019-09-28 07:20] LABS: BURR CELLS FEW; PLATELET SUFFICIENCY NORMAL (NORMAL); POLYCHROMASIA SLIGHT; SCHISTOCYTES FEW; TARGET CELLS FEW
[2019-09-28 07:21] LABS: MICROCYTOSIS MODERATE
[2019-09-29] VITALS (91 sets, daily range): BP systolic 96–142; BP diastolic 37–448
[2019-09-29 06:18] LABS: HEMATOCRIT 29.5 % (37.0-47.0); MEAN CELL VOLUME 72.3 fl (81.0-99.0); MEAN CORPUSCULAR HGB 19.6 pg (27.0-31.0); MEAN CORPUSCULAR HGB CONC 27.1 g/dl (33.0-37.0); MEAN PLATELET VOLUME 11.3 fl (9.6-12.3); PLATELET COUNT AUTOMATED 238 10*3/uL (130-400); RED BLOOD COUNT 4.08 10*6/uL (4.10-5.10); RED CELL DISTRI WIDTH 18.5 % (0-14.5); WHITE BLOOD COUNT 20.8 10*3/uL (4.8-10.8)
[2019-09-29 06:20] LABS: BUN 31 mg/dl (7-24); CHLORIDE 105 mmol/L (98-107); SODIUM 139 mmol/L (136-145)
[2019-09-29 07:32] LABS: MICROCYTOSIS SLIGHT; OVALOCYTES FEW; PLATELET SUFFICIENCY NORMAL (NORMAL); SCHISTOCYTES FEW; TOTAL CELLS COUNTED 100 #CELLS
[2019-09-30] VITALS: BP 125/51
[2019-09-30 04:00] VITALS: BP 108/51
[2019-09-30 05:00] LABS: BASO % 0.2 % (0.0-1.0); EOS % 0.2 % (1.0-4.0); HEMATOCRIT 28.5 % (37.0-47.0); LYMPH # 0.8 10*3/uL (1.3-4.4); LYMPH % 3.8 % (27.0-41.0); MEAN CELL VOLUME 71.8 fl (81.0-99.0); MEAN CORPUSCULAR HGB 19.9 pg (27.0-31.0); MEAN CORPUSCULAR HGB CONC 27.7 g/dl (33.0-37.0); MEAN PLATELET VOLUME 10.1 fl (9.6-12.3); MONO # 1.3 10*3/uL (0.1-1.0); MONO % 6.5 % (3.0-9.0); NEUT # 17.6 10*3/uL (2.3-7.9); NEUT % 88.8 % (47.0-73.0); PLATELET COUNT AUTOMATED 193 10*3/uL (130-400); RED BLOOD COUNT 3.97 10*6/uL (4.10-5.10); RED CELL DISTRI WIDTH 18.8 % (0-14.5); WHITE BLOOD COUNT 19.9 10*3/uL (4.8-10.8)
[2019-09-30 05:11] LABS: BUN 38 mg/dl (7-24); CHLORIDE 104 mmol/L (98-107); CREATININE 0.82 mg/dL (0.55-1.02); POTASSIUM 3.7 mmol/L (3.5-5.1); SODIUM 139 mmol/L (136-145)
[2019-09-30 08:00] VITALS: BP 112/47
[2019-09-30 12:00] VITALS: BP 111/58
[2019-09-30 16:00] VITALS: BP 102/53
[2019-09-30 20:00] VITALS: BP 108/58
[2019-10-01] VITALS: BP 104/55
[2019-10-01 06:06] LABS: BASO % 0.1 % (0.0-1.0); EOS # 0.1 10*3/uL (0.0-0.4); EOS % 0.5 % (1.0-4.0); HEMATOCRIT 28.3 % (37.0-47.0); LYMPH % 7.2 % (27.0-41.0); MEAN CELL VOLUME 71.6 fl (81.0-99.0); MEAN CORPUSCULAR HGB 19.7 pg (27.0-31.0); MEAN CORPUSCULAR HGB CONC 27.6 g/dl (33.0-37.0); MEAN PLATELET VOLUME 10.5 fl (9.6-12.3); MONO % 7.6 % (3.0-9.0); NEUT # 11.5 10*3/uL (2.3-7.9); PLATELET COUNT AUTOMATED 199 10*3/uL (130-400); RED BLOOD COUNT 3.95 10*6/uL (4.10-5.10); RED CELL DISTRI WIDTH 19.1 % (0-14.5); WHITE BLOOD COUNT 13.6 10*3/uL (4.8-10.8)
[2019-10-01 06:19] LABS: BUN 40 mg/dl (7-24); CHLORIDE 106 mmol/L (98-107); CREATININE 0.82 mg/dL (0.55-1.02); POTASSIUM 3.5 mmol/L (3.5-5.1); SODIUM 141 mmol/L (136-145)
[2019-10-01 08:52] VITALS: BP 110/56
[2019-10-01 12:00] VITALS: BP 121/61
[2019-10-01 16:00] VITALS: BP 129/66
[2019-10-01 20:00] VITALS: BP 118/50
[2019-10-02] VITALS: BP 127/56
[2019-10-02 06:10] LABS: BASO % 0.2 % (0.0-1.0); EOS # 0.1 10*3/uL (0.0-0.4); EOS % 0.4 % (1.0-4.0); HEMATOCRIT 29.6 % (37.0-47.0); LYMPH % 7.3 % (27.0-41.0); MEAN CELL VOLUME 73.6 fl (81.0-99.0); MEAN CORPUSCULAR HGB 19.4 pg (27.0-31.0); MEAN CORPUSCULAR HGB CONC 26.4 g/dl (33.0-37.0); MEAN PLATELET VOLUME 10.6 fl (9.6-12.3); MONO % 7.4 % (3.0-9.0); NEUT # 11.5 10*3/uL (2.3-7.9); NEUT % 84.2 % (47.0-73.0); PLATELET COUNT AUTOMATED 209 10*3/uL (130-400); RED BLOOD COUNT 4.02 10*6/uL (4.10-5.10); RED CELL DISTRI WIDTH 19.4 % (0-14.5); WHITE BLOOD COUNT 13.6 10*3/uL (4.8-10.8)
[2019-10-02 06:38] LABS: ALBUMIN 1.6 gm/dl (3.1-4.5); BUN 37 mg/dl (7-24); CHLORIDE 108 mmol/L (98-107); POTASSIUM 3.8 mmol/L (3.5-5.1); SGOT/AST 18 IU/L (3-35); SGPT/ALT 15 U/L (12-78); SODIUM 143 mmol/L (136-145); TOTAL PROTEIN 5.2 gm/dL (6.4-8.2)
[2019-10-02 06:39] LABS: ALKALINE PHOSPHATASE 65 U/L (45-117)
[2019-10-02 10:03] VITALS: BP 120/64
[2019-10-02 10:22] LABS: ABG BASE EXCESS 4.2 mmol/L (-2.0-2.0); ARTERIAL BLOOD GAS PH 7.423 (7.35-7.45)
[2019-10-02 12:00] VITALS: BP 126/60
[2019-10-02 16:00] VITALS: BP 134/74
[2019-10-02 20:00] VITALS: BP 107/52
[2019-10-03] VITALS: BP 112/68
[2019-10-03 08:00] VITALS: BP 116/62
[2019-10-03 12:00] VITALS: BP 127/47
[2019-10-03 14:06] LABS: ABG BASE EXCESS 5.6 mmol/L (-2.0-2.0); ARTERIAL BLOOD GAS PH 7.415 (7.35-7.45)
[2019-10-03 16:00] VITALS: BP 143/71
[2019-10-03 20:00] VITALS: BP 140/65
[2019-10-04] VITALS: BP 139/50
[2019-10-04 06:16] LABS: BASO % 0.2 % (0.0-1.0); EOS # 0.1 10*3/uL (0.0-0.4); EOS % 0.8 % (1.0-4.0); HEMATOCRIT 31.8 % (37.0-47.0); LYMPH # 1.1 10*3/uL (1.3-4.4); LYMPH % 9.1 % (27.0-41.0); MEAN CELL VOLUME 74.1 fl (81.0-99.0); MEAN PLATELET VOLUME 10.3 fl (9.6-12.3); MONO # 1.2 10*3/uL (0.1-1.0); MONO % 9.8 % (3.0-9.0); NEUT # 9.5 10*3/uL (2.3-7.9); NEUT % 79.3 % (47.0-73.0); PLATELET COUNT AUTOMATED 213 10*3/uL (130-400); RED BLOOD COUNT 4.29 10*6/uL (4.10-5.10); RED CELL DISTRI WIDTH 20.1 % (0-14.5)
[2019-10-04 06:33] LABS: ALBUMIN 1.7 gm/dl (3.1-4.5); ALKALINE PHOSPHATASE 66 U/L (45-117); BUN 29 mg/dl (7-24); CHLORIDE 109 mmol/L (98-107); CREATININE 0.62 mg/dL (0.55-1.02); POTASSIUM 3.3 mmol/L (3.5-5.1); SGOT/AST 14 IU/L (3-35); SGPT/ALT 20 U/L (12-78); SODIUM 145 mmol/L (136-145); TOTAL PROTEIN 5.4 gm/dL (6.4-8.2)
[2019-10-04 08:00] VITALS: BP 142/78
[2019-10-04 12:00] VITALS: BP 116/74
[2019-10-04 13:44] LABS: ABG BASE EXCESS 5.6 mmol/L (-2.0-2.0); ARTERIAL BLOOD GAS PH 7.449 (7.35-7.45)
[2019-10-04 16:00] VITALS: BP 130/71
[2019-10-04 17:58] LABS: ACT PARTIAL THROMBO TIME 23.6 SECONDS (20.0-32.1); INTERNATIONAL NORM RATIO 1.2 (2.0-3.5)
[2019-10-04 20:00] VITALS: BP 150/65
[2019-10-05] VITALS (16 sets, daily range): BP systolic 93–140; BP diastolic 44–72
[2019-10-05 06:30] LABS: BASO % 0.1 % (0.0-1.0); EOS # 0.2 10*3/uL (0.0-0.4); EOS % 1.1 % (1.0-4.0); HEMATOCRIT 29.8 % (37.0-47.0); LYMPH # 1.2 10*3/uL (1.3-4.4); LYMPH % 8.8 % (27.0-41.0); MEAN CELL VOLUME 73.6 fl (81.0-99.0); MEAN CORPUSCULAR HGB 19.8 pg (27.0-31.0); MEAN CORPUSCULAR HGB CONC 26.8 g/dl (33.0-37.0); MEAN PLATELET VOLUME 10.3 fl (9.6-12.3); MONO # 1.3 10*3/uL (0.1-1.0); MONO % 9.5 % (3.0-9.0); NEUT % 79.9 % (47.0-73.0); PLATELET COUNT AUTOMATED 232 10*3/uL (130-400); RED BLOOD COUNT 4.05 10*6/uL (4.10-5.10); RED CELL DISTRI WIDTH 20.4 % (0-14.5); WHITE BLOOD COUNT 13.8 10*3/uL (4.8-10.8)
[2019-10-05 06:42] LABS: ALBUMIN 1.7 gm/dl (3.1-4.5); ALKALINE PHOSPHATASE 61 U/L (45-117); BUN 27 mg/dl (7-24); CHLORIDE 110 mmol/L (98-107); CREATININE 0.67 mg/dL (0.55-1.02); POTASSIUM 3.1 mmol/L (3.5-5.1); SGOT/AST 17 IU/L (3-35); SGPT/ALT 19 U/L (12-78); SODIUM 146 mmol/L (136-145)
[2019-10-05 22:08] LABS: ABG BASE EXCESS 4.8 mmol/L (-2.0-2.0); ARTERIAL BLOOD GAS PH 7.45 (7.35-7.45)
[2019-10-05 22:40] LABS: BUN 26 mg/dl (7-24); CHLORIDE 111 mmol/L (98-107); CREATININE 0.61 mg/dL (0.55-1.02); SODIUM 144 mmol/L (136-145)
[2019-10-05 22:42] LABS: POTASSIUM 4.2 mmol/L (3.5-5.1)
[2019-10-06] VITALS (12 sets, daily range): BP systolic 100–117; BP diastolic 45–64
[2019-10-06 05:44] LABS: ABG BASE EXCESS 4.8 mmol/L (-2.0-2.0); ARTERIAL BLOOD GAS PH 7.44 (7.35-7.45)
[2019-10-06 05:51] LABS: ALBUMIN 1.7 gm/dl (3.1-4.5); ALKALINE PHOSPHATASE 60 U/L (45-117); BUN 25 mg/dl (7-24); CHLORIDE 112 mmol/L (98-107); CREATININE 0.68 mg/dL (0.55-1.02); POTASSIUM 3.6 mmol/L (3.5-5.1); SGOT/AST 20 IU/L (3-35); SGPT/ALT 20 U/L (12-78); SODIUM 144 mmol/L (136-145); TOTAL PROTEIN 4.8 gm/dL (6.4-8.2)
[2019-10-06 06:25] LABS: BASO % 0.1 % (0.0-1.0); EOS # 0.3 10*3/uL (0.0-0.4); EOS % 1.7 % (1.0-4.0); HEMATOCRIT 28.5 % (37.0-47.0); LYMPH # 1.2 10*3/uL (1.3-4.4); LYMPH % 7.6 % (27.0-41.0); MEAN CELL VOLUME 74.8 fl (81.0-99.0); MEAN CORPUSCULAR HGB 19.9 pg (27.0-31.0); MEAN CORPUSCULAR HGB CONC 26.7 g/dl (33.0-37.0); MEAN PLATELET VOLUME 10.9 fl (9.6-12.3); MONO # 1.2 10*3/uL (0.1-1.0); MONO % 7.7 % (3.0-9.0); NEUT # 12.6 10*3/uL (2.3-7.9); NEUT % 81.8 % (47.0-73.0); NUCLEATED RED BLOOD CELL 0.1 % (0.0-0.0); PLATELET COUNT AUTOMATED 242 10*3/uL (130-400); RED BLOOD COUNT 3.81 10*6/uL (4.10-5.10); RED CELL DISTRI WIDTH 20.6 % (0-14.5); WHITE BLOOD COUNT 15.5 10*3/uL (4.8-10.8)
[2019-10-06 16:04] LABS: ACID FAST SPEC PROCESSING Concentration (.)
[2019-10-07] VITALS (13 sets, daily range): BP systolic 97–130; BP diastolic 40–64
[2019-10-07 05:24] LABS: ALBUMIN 1.7 gm/dl (3.1-4.5); ALKALINE PHOSPHATASE 63 U/L (45-117); BUN 24 mg/dl (7-24); CHLORIDE 113 mmol/L (98-107); CREATININE 0.71 mg/dL (0.55-1.02); POTASSIUM 3.6 mmol/L (3.5-5.1); SGOT/AST 21 IU/L (3-35); SGPT/ALT 20 U/L (12-78); SODIUM 148 mmol/L (136-145); TOTAL PROTEIN 4.9 gm/dL (6.4-8.2)
[2019-10-07 06:12] LABS: BASO % 0.1 % (0.0-1.0); EOS # 0.3 10*3/uL (0.0-0.4); EOS % 1.9 % (1.0-4.0); HEMATOCRIT 28.4 % (37.0-47.0); LYMPH # 1.3 10*3/uL (1.3-4.4); LYMPH % 7.9 % (27.0-41.0); MEAN CELL VOLUME 73.6 fl (81.0-99.0); MEAN CORPUSCULAR HGB 20.2 pg (27.0-31.0); MEAN CORPUSCULAR HGB CONC 27.5 g/dl (33.0-37.0); MEAN PLATELET VOLUME 11.1 fl (9.6-12.3); MONO # 1.2 10*3/uL (0.1-1.0); MONO % 7.5 % (3.0-9.0); NEUT # 13.3 10*3/uL (2.3-7.9); NEUT % 81.3 % (47.0-73.0); NUCLEATED RED BLOOD CELL 0.2 % (0.0-0.0); PLATELET COUNT AUTOMATED 296 10*3/uL (130-400); RED BLOOD COUNT 3.86 10*6/uL (4.10-5.10); RED CELL DISTRI WIDTH 21.5 % (0-14.5); WHITE BLOOD COUNT 16.3 10*3/uL (4.8-10.8)
[2019-10-07 07:45] LABS: ABG BASE EXCESS 5.6 mmol/L (-2.0-2.0); ARTERIAL BLOOD GAS PH 7.444 (7.35-7.45)
[2019-10-08] VITALS (12 sets, daily range): BP systolic 101–130; BP diastolic 50–65
[2019-10-08 06:05] LABS: BASO % 0.2 % (0.0-1.0); EOS # 0.3 10*3/uL (0.0-0.4); EOS % 1.9 % (1.0-4.0); HEMATOCRIT 26.3 % (37.0-47.0); LYMPH # 1.3 10*3/uL (1.3-4.4); LYMPH % 8.7 % (27.0-41.0); MEAN CELL VOLUME 74.7 fl (81.0-99.0); MEAN CORPUSCULAR HGB 20.2 pg (27.0-31.0); MEAN PLATELET VOLUME 10.9 fl (9.6-12.3); MONO % 6.5 % (3.0-9.0); NEUT # 11.9 10*3/uL (2.3-7.9); NEUT % 81.7 % (47.0-73.0); NUCLEATED RED BLOOD CELL 0.1 % (0.0-0.0); PLATELET COUNT AUTOMATED 261 10*3/uL (130-400); RED BLOOD COUNT 3.52 10*6/uL (4.10-5.10); RED CELL DISTRI WIDTH 21.9 % (0-14.5); WHITE BLOOD COUNT 14.5 10*3/uL (4.8-10.8)
[2019-10-08 06:18] LABS: ALBUMIN 1.8 gm/dl (3.1-4.5); ALKALINE PHOSPHATASE 53 U/L (45-117); BUN 22 mg/dl (7-24); CHLORIDE 110 mmol/L (98-107); CREATININE 0.65 mg/dL (0.55-1.02); POTASSIUM 3.1 mmol/L (3.5-5.1); SGOT/AST 30 IU/L (3-35); SGPT/ALT 17 U/L (12-78); SODIUM 144 mmol/L (136-145)
[2019-10-08 08:21] LABS: ABG BASE EXCESS 8.3 mmol/L (-2.0-2.0); ARTERIAL BLOOD GAS PH 7.477 (7.35-7.45)
[2019-10-09] VITALS (19 sets, daily range): BP systolic 103–129; BP diastolic 42–57
[2019-10-09 06:15] LABS: HEMATOCRIT 25.2 % (37.0-47.0); MEAN CORPUSCULAR HGB 20.5 pg (27.0-31.0); MEAN CORPUSCULAR HGB CONC 27.4 g/dl (33.0-37.0); MEAN PLATELET VOLUME 11.4 fl (9.6-12.3); NUCLEATED RED BLOOD CELL 0.3 % (0.0-0.0); PLATELET COUNT AUTOMATED 301 10*3/uL (130-400); RED BLOOD COUNT 3.36 10*6/uL (4.10-5.10); RED CELL DISTRI WIDTH 22.1 % (0-14.5); WHITE BLOOD COUNT 14.6 10*3/uL (4.8-10.8)
[2019-10-09 06:29] LABS: ALBUMIN 2.3 gm/dl (3.1-4.5); BUN 21 mg/dl (7-24); CHLORIDE 107 mmol/L (98-107); POTASSIUM 3.1 mmol/L (3.5-5.1); SODIUM 144 mmol/L (136-145)
[2019-10-09 06:33] LABS: ALKALINE PHOSPHATASE 53 U/L (45-117); CREATININE 0.74 mg/dL (0.55-1.02); SGOT/AST 25 IU/L (3-35); SGPT/ALT 16 U/L (12-78); TOTAL PROTEIN 5.3 gm/dL (6.4-8.2)
[2019-10-09 06:35] LABS: TOTAL CELLS COUNTED 100 #CELLS
[2019-10-09 06:36] LABS: MICROCYTOSIS MODERATE; OVALOCYTES FEW; PLATELET SUFFICIENCY NORMAL (NORMAL); POLYCHROMASIA SLIGHT; ROULEAUX SLIGHT; SCHISTOCYTES FEW; TARGET CELLS FEW
[2019-10-09 07:26] LABS: ABG BASE EXCESS 8.7 mmol/L (-2.0-2.0); ARTERIAL BLOOD GAS PH 7.464 (7.35-7.45)
[2019-10-10] VITALS (12 sets, daily range): BP systolic 107–129; BP diastolic 46–63
[2019-10-10 05:17] LABS: ABG BASE EXCESS 10.2 mmol/L (-2.0-2.0); ARTERIAL BLOOD GAS PH 7.467 (7.35-7.45)
[2019-10-10 06:27] LABS: BASO # 0.1 10*3/uL (0.0-0.1); BASO % 0.4 % (0.0-1.0); EOS # 0.4 10*3/uL (0.0-0.4); EOS % 2.6 % (1.0-4.0); HEMATOCRIT 29.1 % (37.0-47.0); LYMPH # 1.2 10*3/uL (1.3-4.4); LYMPH % 8.5 % (27.0-41.0); MEAN CORPUSCULAR HGB 21.4 pg (27.0-31.0); MEAN CORPUSCULAR HGB CONC 28.5 g/dl (33.0-37.0); MEAN PLATELET VOLUME 10.9 fl (9.6-12.3); MONO # 0.9 10*3/uL (0.1-1.0); MONO % 5.9 % (3.0-9.0); NEUT # 11.7 10*3/uL (2.3-7.9); NUCLEATED RED BLOOD CELL 0.2 % (0.0-0.0); PLATELET COUNT AUTOMATED 351 10*3/uL (130-400); RED BLOOD COUNT 3.88 10*6/uL (4.10-5.10); RED CELL DISTRI WIDTH 21.8 % (0-14.5); WHITE BLOOD COUNT 14.4 10*3/uL (4.8-10.8)
[2019-10-10 06:56] LABS: ALBUMIN 2.6 gm/dl (3.1-4.5); ALKALINE PHOSPHATASE 49 U/L (45-117); BUN 19 mg/dl (7-24); CHLORIDE 104 mmol/L (98-107); CREATININE 0.66 mg/dL (0.55-1.02); POTASSIUM 2.7 mmol/L (3.5-5.1); SGOT/AST 33 IU/L (3-35); SGPT/ALT 15 U/L (12-78); SODIUM 141 mmol/L (136-145); TOTAL PROTEIN 5.7 gm/dL (6.4-8.2); TRIGLYCERIDES 128 mg/dl (<150)
[2019-10-10 15:34] LABS: ABG BASE EXCESS 7.8 mmol/L (-2.0-2.0); ARTERIAL BLOOD GAS PH 7.445 (7.35-7.45)
[2019-10-10 18:16] LABS: ALBUMIN 2.5 gm/dl (3.1-4.5); ALKALINE PHOSPHATASE 52 U/L (45-117); BUN 21 mg/dl (7-24); CHLORIDE 106 mmol/L (98-107); CREATININE 0.66 mg/dL (0.55-1.02); SGOT/AST 44 IU/L (3-35); SGPT/ALT 20 U/L (12-78); SODIUM 140 mmol/L (136-145); TOTAL PROTEIN 5.8 gm/dL (6.4-8.2)
[2019-10-10 18:18] LABS: POTASSIUM 4.1 mmol/L (3.5-5.1)
[2019-10-11] VITALS (12 sets, daily range): BP systolic 108–144; BP diastolic 52–78
[2019-10-11 05:47] LABS: ALBUMIN 2.4 gm/dl (3.1-4.5); ALKALINE PHOSPHATASE 57 U/L (45-117); BUN 24 mg/dl (7-24); CHLORIDE 105 mmol/L (98-107); CREATININE 0.61 mg/dL (0.55-1.02); SGOT/AST 34 IU/L (3-35); SGPT/ALT 20 U/L (12-78); SODIUM 142 mmol/L (136-145); TOTAL PROTEIN 5.7 gm/dL (6.4-8.2)
[2019-10-11 05:55] LABS: POTASSIUM 3.1 mmol/L (3.5-5.1)
[2019-10-11 06:10] LABS: BASO # 0.1 10*3/uL (0.0-0.1); BASO % 0.4 % (0.0-1.0); EOS # 0.5 10*3/uL (0.0-0.4); EOS % 3.2 % (1.0-4.0); HEMATOCRIT 31.1 % (37.0-47.0); LYMPH # 1.1 10*3/uL (1.3-4.4); LYMPH % 7.1 % (27.0-41.0); MEAN CELL VOLUME 76.8 fl (81.0-99.0); MEAN CORPUSCULAR HGB 21.7 pg (27.0-31.0); MEAN CORPUSCULAR HGB CONC 28.3 g/dl (33.0-37.0); MEAN PLATELET VOLUME 11.2 fl (9.6-12.3); MONO # 1.1 10*3/uL (0.1-1.0); MONO % 6.8 % (3.0-9.0); NEUT # 12.9 10*3/uL (2.3-7.9); NEUT % 81.4 % (47.0-73.0); NUCLEATED RED BLOOD CELL 0.1 % (0.0-0.0); RED BLOOD COUNT 4.05 10*6/uL (4.10-5.10); RED CELL DISTRI WIDTH 22.5 % (0-14.5); WHITE BLOOD COUNT 15.8 10*3/uL (4.8-10.8)
[2019-10-11 06:13] LABS: PLATELET COUNT AUTOMATED 457 10*3/uL (130-400)
[2019-10-11 13:20] LABS: ABG BASE EXCESS 6.2 mmol/L (-2.0-2.0); ARTERIAL BLOOD GAS PH 7.402 (7.35-7.45)
[2019-10-12] VITALS (15 sets, daily range): BP systolic 114–142; BP diastolic 57–82
[2019-10-12 06:05] LABS: BASO # 0.1 10*3/uL (0.0-0.1); BASO % 0.3 % (0.0-1.0); EOS # 0.3 10*3/uL (0.0-0.4); EOS % 1.4 % (1.0-4.0); HEMATOCRIT 32.5 % (37.0-47.0); LYMPH # 0.8 10*3/uL (1.3-4.4); LYMPH % 4.2 % (27.0-41.0); MEAN CELL VOLUME 77.8 fl (81.0-99.0); MEAN CORPUSCULAR HGB 21.5 pg (27.0-31.0); MEAN CORPUSCULAR HGB CONC 27.7 g/dl (33.0-37.0); MEAN PLATELET VOLUME 10.5 fl (9.6-12.3); MONO # 1.3 10*3/uL (0.1-1.0); MONO % 6.9 % (3.0-9.0); NEUT # 15.9 10*3/uL (2.3-7.9); NEUT % 86.1 % (47.0-73.0); NUCLEATED RED BLOOD CELL 0.1 % (0.0-0.0); PLATELET COUNT AUTOMATED 486 10*3/uL (130-400); RED BLOOD COUNT 4.18 10*6/uL (4.10-5.10); RED CELL DISTRI WIDTH 23.3 % (0-14.5); WHITE BLOOD COUNT 18.4 10*3/uL (4.8-10.8)
[2019-10-12 06:10] LABS: ALBUMIN 2.2 gm/dl (3.1-4.5); ALKALINE PHOSPHATASE 58 U/L (45-117); BUN 25 mg/dl (7-24); CHLORIDE 107 mmol/L (98-107); CREATININE 0.57 mg/dL (0.55-1.02); SGOT/AST 22 IU/L (3-35); SGPT/ALT 22 U/L (12-78); SODIUM 142 mmol/L (136-145); TOTAL PROTEIN 5.9 gm/dL (6.4-8.2)
[2019-10-12 06:12] LABS: POTASSIUM 4.1 mmol/L (3.5-5.1)
[2019-10-12 07:12] LABS: ABG BASE EXCESS 5.6 mmol/L (-2.0-2.0); ARTERIAL BLOOD GAS PH 7.423 (7.35-7.45)
[2019-10-12 15:00] LABS: ABG BASE EXCESS 5.5 mmol/L (-2.0-2.0); ARTERIAL BLOOD GAS PH 7.405 (7.35-7.45)
[2019-10-13] VITALS (12 sets, daily range): BP systolic 91–138; BP diastolic 50–73
[2019-10-13 05:44] LABS: ALBUMIN 2.1 gm/dl (3.1-4.5); ALKALINE PHOSPHATASE 61 U/L (45-117); BUN 34 mg/dl (7-24); CHLORIDE 106 mmol/L (98-107); CREATININE 0.65 mg/dL (0.55-1.02); POTASSIUM 4.3 mmol/L (3.5-5.1); SGOT/AST 18 IU/L (3-35); SGPT/ALT 20 U/L (12-78); SODIUM 141 mmol/L (136-145); TOTAL PROTEIN 5.7 gm/dL (6.4-8.2)
[2019-10-13 06:17] LABS: BASO # 0.1 10*3/uL (0.0-0.1); BASO % 0.5 % (0.0-1.0); EOS # 0.7 10*3/uL (0.0-0.4); EOS % 3.5 % (1.0-4.0); HEMATOCRIT 32.7 % (37.0-47.0); LYMPH % 5.5 % (27.0-41.0); MEAN CELL VOLUME 79.6 fl (81.0-99.0); MEAN CORPUSCULAR HGB 21.9 pg (27.0-31.0); MEAN CORPUSCULAR HGB CONC 27.5 g/dl (33.0-37.0); MEAN PLATELET VOLUME 10.8 fl (9.6-12.3); MONO # 1.4 10*3/uL (0.1-1.0); MONO % 7.3 % (3.0-9.0); NEUT # 15.5 10*3/uL (2.3-7.9); NEUT % 82.3 % (47.0-73.0); PLATELET COUNT AUTOMATED 535 10*3/uL (130-400); RED BLOOD COUNT 4.11 10*6/uL (4.10-5.10); RED CELL DISTRI WIDTH 23.3 % (0-14.5); WHITE BLOOD COUNT 18.8 10*3/uL (4.8-10.8)
[2019-10-13 08:22] LABS: ABG BASE EXCESS 3.5 mmol/L (-2.0-2.0); ARTERIAL BLOOD GAS PH 7.366 (7.35-7.45)
[2019-10-14] VITALS (12 sets, daily range): BP systolic 106–135; BP diastolic 55–73
[2019-10-14 06:07] LABS: BASO # 0.1 10*3/uL (0.0-0.1); BASO % 0.5 % (0.0-1.0); EOS # 0.6 10*3/uL (0.0-0.4); EOS % 3.3 % (1.0-4.0); HEMATOCRIT 29.5 % (37.0-47.0); LYMPH # 0.9 10*3/uL (1.3-4.4); MEAN CELL VOLUME 79.3 fl (81.0-99.0); MEAN CORPUSCULAR HGB 21.8 pg (27.0-31.0); MEAN CORPUSCULAR HGB CONC 27.5 g/dl (33.0-37.0); MEAN PLATELET VOLUME 10.8 fl (9.6-12.3); MONO # 1.3 10*3/uL (0.1-1.0); MONO % 7.7 % (3.0-9.0); NEUT # 13.9 10*3/uL (2.3-7.9); NEUT % 82.6 % (47.0-73.0); PLATELET COUNT AUTOMATED 483 10*3/uL (130-400); RED BLOOD COUNT 3.72 10*6/uL (4.10-5.10); RED CELL DISTRI WIDTH 22.8 % (0-14.5); WHITE BLOOD COUNT 16.9 10*3/uL (4.8-10.8)
[2019-10-14 06:15] LABS: ALBUMIN 2.2 gm/dl (3.1-4.5); BUN 37 mg/dl (7-24); CHLORIDE 105 mmol/L (98-107); POTASSIUM 4.1 mmol/L (3.5-5.1); SODIUM 140 mmol/L (136-145)
[2019-10-14 06:18] LABS: ALKALINE PHOSPHATASE 61 U/L (45-117); CREATININE 0.68 mg/dL (0.55-1.02); SGOT/AST 16 IU/L (3-35); SGPT/ALT 16 U/L (12-78); TOTAL PROTEIN 5.5 gm/dL (6.4-8.2)
[2019-10-14 07:22] LABS: ABG BASE EXCESS 4.4 mmol/L (-2.0-2.0); ARTERIAL BLOOD GAS PH 7.364 (7.35-7.45)
[2019-10-14 15:26] LABS: ABG BASE EXCESS 3.4 mmol/L (-2.0-2.0); ARTERIAL BLOOD GAS PH 7.368 (7.35-7.45)
[2019-10-15] VITALS (12 sets, daily range): BP systolic 90–120; BP diastolic 42–67
[2019-10-15 06:21] LABS: BASO # 0.1 10*3/uL (0.0-0.1); BASO % 0.4 % (0.0-1.0); EOS # 0.3 10*3/uL (0.0-0.4); HEMATOCRIT 29.4 % (37.0-47.0); LYMPH # 0.7 10*3/uL (1.3-4.4); LYMPH % 4.3 % (27.0-41.0); MEAN CELL VOLUME 78.6 fl (81.0-99.0); MEAN CORPUSCULAR HGB 21.7 pg (27.0-31.0); MEAN CORPUSCULAR HGB CONC 27.6 g/dl (33.0-37.0); MEAN PLATELET VOLUME 10.8 fl (9.6-12.3); MONO # 1.2 10*3/uL (0.1-1.0); MONO % 7.2 % (3.0-9.0); NEUT # 14.1 10*3/uL (2.3-7.9); NEUT % 85.3 % (47.0-73.0); PLATELET COUNT AUTOMATED 478 10*3/uL (130-400); RED BLOOD COUNT 3.74 10*6/uL (4.10-5.10); RED CELL DISTRI WIDTH 22.6 % (0-14.5); WHITE BLOOD COUNT 16.5 10*3/uL (4.8-10.8)
[2019-10-15 06:47] LABS: ALBUMIN 2.3 gm/dl (3.1-4.5); ALKALINE PHOSPHATASE 66 U/L (45-117); BUN 40 mg/dl (7-24); CHLORIDE 103 mmol/L (98-107); POTASSIUM 3.5 mmol/L (3.5-5.1); SGOT/AST 29 IU/L (3-35); SGPT/ALT 17 U/L (12-78); SODIUM 140 mmol/L (136-145); TOTAL PROTEIN 5.7 gm/dL (6.4-8.2)
[2019-10-15 07:36] LABS: ABG BASE EXCESS 4.4 mmol/L (-2.0-2.0); ARTERIAL BLOOD GAS PH 7.382 (7.35-7.45)
[2019-10-16] VITALS (11 sets, daily range): BP systolic 85–113; BP diastolic 44–58
[2019-10-16 06:10] LABS: BASO # 0.1 10*3/uL (0.0-0.1); BASO % 0.4 % (0.0-1.0); EOS # 0.3 10*3/uL (0.0-0.4); EOS % 1.7 % (1.0-4.0); LYMPH # 0.8 10*3/uL (1.3-4.4); LYMPH % 4.3 % (27.0-41.0); MEAN CELL VOLUME 76.7 fl (81.0-99.0); MEAN CORPUSCULAR HGB 21.7 pg (27.0-31.0); MEAN CORPUSCULAR HGB CONC 28.3 g/dl (33.0-37.0); MONO # 1.3 10*3/uL (0.1-1.0); MONO % 7.1 % (3.0-9.0); NEUT % 85.7 % (47.0-73.0); PLATELET COUNT AUTOMATED 510 10*3/uL (130-400); RED BLOOD COUNT 3.78 10*6/uL (4.10-5.10); RED CELL DISTRI WIDTH 22.6 % (0-14.5); WHITE BLOOD COUNT 18.6 10*3/uL (4.8-10.8)
[2019-10-16 07:23] LABS: ABG BASE EXCESS 3.1 mmol/L (-2.0-2.0); ARTERIAL BLOOD GAS PH 7.342 (7.35-7.45)
[2019-10-16 08:24] LABS: ALKALINE PHOSPHATASE 78 U/L (45-117); BUN 46 mg/dl (7-24); CHLORIDE 101 mmol/L (98-107); POTASSIUM 3.6 mmol/L (3.5-5.1); SGOT/AST 28 IU/L (3-35); SGPT/ALT 18 U/L (12-78); SODIUM 139 mmol/L (136-145); TOTAL PROTEIN 5.6 gm/dL (6.4-8.2); TRIGLYCERIDES 124 mg/dl (<150)
[2019-10-17] VITALS (12 sets, daily range): BP systolic 70–96; BP diastolic 17–54
[2019-10-17 05:52] LABS: BASO # 0.1 10*3/uL (0.0-0.1); BASO % 0.4 % (0.0-1.0); EOS # 0.5 10*3/uL (0.0-0.4); EOS % 2.6 % (1.0-4.0); HEMATOCRIT 28.8 % (37.0-47.0); LYMPH # 0.6 10*3/uL (1.3-4.4); LYMPH % 3.3 % (27.0-41.0); MEAN CELL VOLUME 76.4 fl (81.0-99.0); MEAN CORPUSCULAR HGB 21.5 pg (27.0-31.0); MEAN CORPUSCULAR HGB CONC 28.1 g/dl (33.0-37.0); MEAN PLATELET VOLUME 10.7 fl (9.6-12.3); MONO # 1.2 10*3/uL (0.1-1.0); MONO % 6.6 % (3.0-9.0); NEUT % 85.9 % (47.0-73.0); PLATELET COUNT AUTOMATED 512 10*3/uL (130-400); RED BLOOD COUNT 3.77 10*6/uL (4.10-5.10); RED CELL DISTRI WIDTH 22.5 % (0-14.5); WHITE BLOOD COUNT 17.5 10*3/uL (4.8-10.8)
[2019-10-17 06:09] LABS: CHLORIDE 100 mmol/L (98-107); CREATININE 0.89 mg/dL (0.55-1.02); POTASSIUM 3.7 mmol/L (3.5-5.1); SODIUM 137 mmol/L (136-145)
[2019-10-17 06:14] LABS: BUN 56 mg/dl (7-24)
[2019-10-17 09:37] LABS: ABG BASE EXCESS 1.7 mmol/L (-2.0-2.0); ARTERIAL BLOOD GAS PH 7.33 (7.35-7.45)
[2019-10-18] VITALS (7 sets, daily range): BP systolic 89–110; BP diastolic 50–58
[2019-10-18 06:01] LABS: CREATININE 1.24 mg/dL (0.55-1.02)
[2019-10-18 06:34] LABS: BASO # 0.1 10*3/uL (0.0-0.1); BASO % 0.5 % (0.0-1.0); EOS # 0.2 10*3/uL (0.0-0.4); EOS % 1.2 % (1.0-4.0); HEMATOCRIT 30.3 % (37.0-47.0); LYMPH # 0.6 10*3/uL (1.3-4.4); LYMPH % 3.7 % (27.0-41.0); MEAN CELL VOLUME 78.7 fl (81.0-99.0); MEAN CORPUSCULAR HGB 21.3 pg (27.0-31.0); MEAN CORPUSCULAR HGB CONC 27.1 g/dl (33.0-37.0); MEAN PLATELET VOLUME 10.2 fl (9.6-12.3); MONO # 1.4 10*3/uL (0.1-1.0); MONO % 8.1 % (3.0-9.0); NEUT # 14.7 10*3/uL (2.3-7.9); NEUT % 84.8 % (47.0-73.0); NUCLEATED RED BLOOD CELL 0.2 % (0.0-0.0); PLATELET COUNT AUTOMATED 519 10*3/uL (130-400); RED BLOOD COUNT 3.85 10*6/uL (4.10-5.10); RED CELL DISTRI WIDTH 22.7 % (0-14.5); WHITE BLOOD COUNT 17.4 10*3/uL (4.8-10.8)
[2019-10-18 06:59] LABS: ABG BASE EXCESS 0.5 mmol/L (-2.0-2.0); ARTERIAL BLOOD GAS PH 7.262 (7.35-7.45)
== END 2019-10-18 15:28 | disposition hospice, home (50) | DRG 870 ==
LOC: ED 16:12 → ICCU 19:00 → 4E 19:00 → EDHOLD 19:00 → 5E 19:00 → 4E 09-30 11:13 → 5E 10-05 11:09 → ICCU 10-10 14:40
PROVIDERS: Emergency Medicine; Family Medicine; Hospitalist; Internal Medicine; Internal Medicine Critical Care Medicine; Internal Medicine Nephrology; Registered Nurse; Student in an Organized Health Care Education/Training Program; ADMIT Internal Medicine
PROC: 5A1935Z Respiratory Ventilation, Less than 24 Consecutive Hours (ICD-10-PCS; 2019-09-21)
PROC: 0BH17EZ Insertion of Endotracheal Airway into Trachea, Via Natural or Artificial Opening (ICD-10-PCS; 2019-09-21)
PROC: 4A133J1 Monitoring of Arterial Pulse, Peripheral, Percutaneous Approach (ICD-10-PCS; principal; 2019-09-25)
PROC: 4A133B1 Monitoring of Arterial Pressure, Peripheral, Percutaneous Approach (ICD-10-PCS; principal; 2019-09-25)
PROC: B548ZZA Ultrasonography of Superior Vena Cava, Guidance (ICD-10-PCS; principal; 2019-09-25)
PROC: 02HV33Z Insertion of Infusion Device into Superior Vena Cava, Percutaneous Approach (ICD-10-PCS; principal; 2019-09-25)
PROC: 03HY32Z Insertion of Monitoring Device into Upper Artery, Percutaneous Approach (ICD-10-PCS; principal; 2019-09-25)
PROC: 5A1945Z Respiratory Ventilation, 24-96 Consecutive Hours (ICD-10-PCS; principal; 2019-09-25)
PROC: 0BH17EZ Insertion of Endotracheal Airway into Trachea, Via Natural or Artificial Opening (ICD-10-PCS; principal; 2019-09-25)
PROC: 5A09357 Assistance with Respiratory Ventilation, Less than 24 Consecutive Hours, Continuous Positive Airway Pressure (ICD-10-PCS; 2019-09-28)
PROC: 5A09357 Assistance with Respiratory Ventilation, Less than 24 Consecutive Hours, Continuous Positive Airway Pressure (ICD-10-PCS; 2019-09-29)
PROC: 5A09357 Assistance with Respiratory Ventilation, Less than 24 Consecutive Hours, Continuous Positive Airway Pressure (ICD-10-PCS; 2019-09-30)
PROC: 5A09357 Assistance with Respiratory Ventilation, Less than 24 Consecutive Hours, Continuous Positive Airway Pressure (ICD-10-PCS; 2019-10-01)
PROC: 05HB33Z Insertion of Infusion Device into Right Basilic Vein, Percutaneous Approach (ICD-10-PCS; 2019-10-01)
PROC: 5A09457 Assistance with Respiratory Ventilation, 24-96 Consecutive Hours, Continuous Positive Airway Pressure (ICD-10-PCS; 2019-10-02)
PROC: 0B9B8ZZ Drainage of Left Lower Lobe Bronchus, Via Natural or Artificial Opening Endoscopic (ICD-10-PCS; 2019-10-05)
PROC: 0B958ZZ Drainage of Right Middle Lobe Bronchus, Via Natural or Artificial Opening Endoscopic (ICD-10-PCS; 2019-10-05)
PROC: 0B998ZZ Drainage of Lingula Bronchus, Via Natural or Artificial Opening Endoscopic (ICD-10-PCS; 2019-10-05)
PROC: 0BH17EZ Insertion of Endotracheal Airway into Trachea, Via Natural or Artificial Opening (ICD-10-PCS; 2019-10-05)
PROC: 0B968ZZ Drainage of Right Lower Lobe Bronchus, Via Natural or Artificial Opening Endoscopic (ICD-10-PCS; 2019-10-05)
PROC: 0B948ZZ Drainage of Right Upper Lobe Bronchus, Via Natural or Artificial Opening Endoscopic (ICD-10-PCS; 2019-10-05)
PROC: 0B988ZZ Drainage of Left Upper Lobe Bronchus, Via Natural or Artificial Opening Endoscopic (ICD-10-PCS; 2019-10-05)
PROC: 5A1955Z Respiratory Ventilation, Greater than 96 Consecutive Hours (ICD-10-PCS; 2019-10-05)
PROC: 30233N1 Transfusion of Nonautologous Red Blood Cells into Peripheral Vein, Percutaneous Approach (ICD-10-PCS; 2019-10-09)
DX: A41.9 Sepsis, unspecified organism (principal); J18.9 Pneumonia, unspecified organism; E43 Unspecified severe protein-calorie malnutrition; J96.21 Acute and chronic respiratory failure with hypoxia; I50.31 Acute diastolic (congestive) heart failure; G93.41 Metabolic encephalopathy; I24.8 Other forms of acute ischemic heart disease; J44.0 Chronic obstructive pulmonary disease with (acute) lower respiratory infection; J44.1 Chronic obstructive pulmonary disease with (acute) exacerbation; N17.9 Acute kidney failure, unspecified; K92.2 Gastrointestinal hemorrhage, unspecified; E87.0 Hyperosmolality and hypernatremia; D62 Acute posthemorrhagic anemia; R65.20 Severe sepsis without septic shock; E86.0 Dehydration; D50.9 Iron deficiency anemia, unspecified; E87.8 Other disorders of electrolyte and fluid balance, not elsewhere classified; R73.9 Hyperglycemia, unspecified; Z66 Do not resuscitate; Z51.5 Encounter for palliative care; E83.41 Hypermagnesemia; F32.9 Major depressive disorder, single episode, unspecified; D47.3 Essential (hemorrhagic) thrombocythemia; I95.9 Hypotension, unspecified; R62.7 Adult failure to thrive; E66.9 Obesity, unspecified; E87.6 Hypokalemia; E83.39 Other disorders of phosphorus metabolism; I11.0 Hypertensive heart disease with heart failure; E78.5 Hyperlipidemia, unspecified; K21.0 Gastro-esophageal reflux disease with esophagitis; I48.0 Paroxysmal atrial fibrillation; Z88.2 Allergy status to sulfonamides; Z88.8 Allergy status to other drugs, medicaments and biological substances; Z91.041 Radiographic dye allergy status; Z79.899 Other long term (current) drug therapy; Z90.710 Acquired absence of both cervix and uterus; Z98.51 Tubal ligation status; Z86.73 Personal history of transient ischemic attack (TIA), and cerebral infarction without residual deficits; Z03.818 Encounter for observation for suspected exposure to other biological agents ruled out; Z68.33 Body mass index [BMI] 33.0-33.9, adult

== ENCOUNTER 2019-10-18 15:31 | Inpatient (IN) | payer OTHER, MEDICARE ==
[~2019-10-18] VITALS: Ht 162.6 cm; Wt 87.3 kg
[2019-10-18 15:50] VITALS: BP 105/52
[2019-10-18 20:00] VITALS: BP 97/56
[2019-10-19] VITALS (7 sets, daily range): BP systolic 84–150; BP diastolic 45–62
[2019-10-19 05:56] LABS: CREATININE 1.86 mg/dL (0.55-1.02)
[2019-10-19 06:08] LABS: HEMATOCRIT 27.7 % (37.0-47.0); MEAN CORPUSCULAR HGB 21.7 pg (27.0-31.0); MEAN CORPUSCULAR HGB CONC 27.8 g/dl (33.0-37.0); NUCLEATED RED BLOOD CELL 0.1 10*3/uL (0.0-0.0); NUCLEATED RED BLOOD CELL 0.2 % (0.0-0.0); PLATELET COUNT AUTOMATED 464 10*3/uL (130-400); RED BLOOD COUNT 3.55 10*6/uL (4.10-5.10); RED CELL DISTRI WIDTH 22.3 % (0-14.5); WHITE BLOOD COUNT 20.9 10*3/uL (4.8-10.8)
[2019-10-19 07:17] LABS: BASOPHILS 1 % (0-1); TOTAL CELLS COUNTED 100 #CELLS
[2019-10-19 07:18] LABS: MICROCYTOSIS SLIGHT; OVALOCYTES FEW; PLATELET SUFFICIENCY HIGH (NORMAL); POLYCHROMASIA SLIGHT; ROULEAUX SLIGHT
== END 2019-10-19 13:04 | disposition expired | DRG 871 ==
LOC: ICCU 15:31
PROVIDERS: ADMIT Internal Medicine
PROC: 5A1935Z Respiratory Ventilation, Less than 24 Consecutive Hours (ICD-10-PCS; principal; 2019-10-18)
DX: A41.9 Sepsis, unspecified organism (principal); J18.9 Pneumonia, unspecified organism; J96.21 Acute and chronic respiratory failure with hypoxia; E43 Unspecified severe protein-calorie malnutrition; J44.0 Chronic obstructive pulmonary disease with (acute) lower respiratory infection; I24.8 Other forms of acute ischemic heart disease; I50.30 Unspecified diastolic (congestive) heart failure; K92.2 Gastrointestinal hemorrhage, unspecified; R65.20 Severe sepsis without septic shock; F32.9 Major depressive disorder, single episode, unspecified; D50.9 Iron deficiency anemia, unspecified; D47.3 Essential (hemorrhagic) thrombocythemia; E87.8 Other disorders of electrolyte and fluid balance, not elsewhere classified; E86.0 Dehydration; E83.41 Hypermagnesemia; Z20.828 Contact with and (suspected) exposure to other viral communicable diseases; Z66 Do not resuscitate; Z51.5 Encounter for palliative care; I11.0 Hypertensive heart disease with heart failure; I95.9 Hypotension, unspecified; Z90.710 Acquired absence of both cervix and uterus; Z86.73 Personal history of transient ischemic attack (TIA), and cerebral infarction without residual deficits; Z98.51 Tubal ligation status; Z88.2 Allergy status to sulfonamides; Z88.8 Allergy status to other drugs, medicaments and biological substances; Z91.041 Radiographic dye allergy status; Z79.899 Other long term (current) drug therapy; Z87.891 Personal history of nicotine dependence; Z68.33 Body mass index [BMI] 33.0-33.9, adult